=== PATIENT | female | born 1935 | race Caucasian/White ===

== ENCOUNTER 2023-09-03 11:30 | Inpatient (IN) | payer BC, MEDICAID, OTHER ==
[~2023-09-03] VITALS: Ht 149.9 cm; Wt 101.6 kg
[~2023-09-03 11:30] MED LIST: ETOMIDATE 20 MG/10 ML VIAL ONE; PROPOFOL 200 MG/20 ML BOTTLE ONE; SUCCINYLCHOLINE CHLORIDE 200 MG/10 ML VIAL ONE
[2023-09-03] MEDS ORDERED: ONDANSETRON 4 MG/2 ML VIAL ONE (11:37)
[2023-09-03] MEDS ORDERED: ATROPINE SULFATE 1 MG/10 ML DISP.SYRIN ONE ×2 (11:39→11:54)
[2023-09-03] MEDS: ONDANSETRON 4 MG/2 ML VIAL IV PRN ×2 (11:40→17:22)
[2023-09-03 12:00] LABS: BASOPHILS # (AUTO) 0.1 K/UL (0.0-0.2); BASOPHILS % (AUTO) 0.8 % (0.0-2.0); EOSINOPHILS # (AUTO) 0.5 K/uL (0.0-0.7); EOSINOPHILS % (AUTO) 4.9 % (0.0-7.0); HEMATOCRIT 34.3 % (31.2-41.9); HEMOGLOBIN 11.4 g/dL (10.9-14.3); LYMPHOCYTES # (AUTO) 4.1 K/uL (0.8-4.8); LYMPHOCYTES % (AUTO) 40.1 % (20.5-51.5); MEAN CORPUSCULAR HEMOGLOBIN 31.3 uug (24.7-32.8); MEAN CORPUSCULAR HGB CONC 33 g/dL (32.3-35.6); MONOCYTES # (AUTO) 0.7 K/uL (0.1-1.30); MONOCYTES % (AUTO) 6.6 % (0.0-11.0); NEUTROPHILS # (AUTO) 4.9 K/uL (1.8-8.9); NEUTROPHILS % (AUTO) 47.6 % (38.5-71.5); PLATELET COUNT (AUTO) 234 K/uL (179-408); RED BLOOD CELL COUNT(AUTO) 3.65 MIL/uL (3.63-4.92); RED CELL DISTRIBUTION WIDTH 13.5 % (12.3-17.7); WHITE BLOOD COUNT (AUTO) 10.2 K/uL (3.8-11.8)
[2023-09-03] MEDS ORDERED: ATROPINE SULFATE 1 MG/10 ML DISP.SYRIN IV ONE ×2 (12:00→20:00)
[2023-09-03] MEDS ORDERED: APIX2.5T PO (12:04)
[2023-09-03] MEDS ORDERED: DILT-2 PO (12:04)
[2023-09-03] MEDS ORDERED: FLUT12AE20 INH (12:04)
[2023-09-03] MEDS ORDERED: ROSU40TA PO (12:04)
[2023-09-03] MEDS ORDERED: LOSA50TA39 PO (12:04)
[2023-09-03] MEDS ORDERED: ERGO500040 PO (12:04)
[2023-09-03] MEDS ORDERED: SEMA0.25 SQ (12:20)
[2023-09-03] MEDS ORDERED: GLUCAGON,HUMAN RECOMBINANT 1 MG VIAL ONE ×2 (12:21→12:22)
[2023-09-03 12:27] LABS: DIFFERENTIAL COMMENT 1
[2023-09-03] MEDS ORDERED: NOREPINEPHRINE BITARTRATE 4 MG/4 ML VIAL IV ONE (12:49)
[2023-09-03 12:57] LABS: ALANINE AMINOTRANSFERASE 23 U/L (14-59); ALBUMIN 3.4 g/dL (3.4-5.0); ALKALINE PHOSPHATASE 65 U/L (50-136); ASPARTATE AMINOTRANSFERASE 19 U/L (15-37); BILIRUBIN,DIRECT 0.1 mg/dL (0.0-0.2); BILIRUBIN,TOTAL 0.4 mg/dL (0.2-1.0); CARBON DIOXIDE 20 mmol/L (21-32); CHLORIDE 107 mmol/L (98-107); CREATININE 1.8 mg/dL (0.6-1.3); GLUCOSE 164 mg/dL (74-106); POTASSIUM 5.5 mmol/L (3.5-5.1); SODIUM SERUM 139 mmol/L (136-145); TOTAL PROTEIN, SERUM 6.6 g/dL (6.4-8.2); UREA NITROGEN, BLOOD 41 mg/dL (7-18)
[2023-09-03 13:22] LABS: ABG BASE EXCESS -11.3 mmol/L (-2.0-2.0); ABG HCO3 15.5 mmol/L (22.0-26.0); ABG PH 7.229 (7.340-7.440); ABG PO2 71.1 mmHg (75.0-100.0); ABG SITE LEFT RADIAL; ABG TOTAL HEMOGLOBIN 12.7 G/dL (12.0-16.0); AaDO2 91.4 mmHg; COHb 0.1 % (0.0-3.9); MetHb 0.1 % (0.0-1.5); O2Hb 91.5 % (94.0-97.0)
[2023-09-03] MEDS ORDERED: ACETAMINOPHEN 325 MG TABLET PO PRN (14:00)
[2023-09-03] MEDS ORDERED: PROPOFOL 100 ML IV PRN (14:00)
[2023-09-03] MEDS ORDERED: VANCOMYCIN IV 1,000 MG in IV DEXTROSE 5% 250 ML IV ONE (14:15)
[2023-09-03] MEDS ORDERED: CEFEPIME HCL 1 G in IV DEXTROSE 5% 50 ML IV SCH (14:15)
[2023-09-03 14:37] LABS: LIPASE 71 U/L (16-77)
[2023-09-03 14:40] LABS: MAGNESIUM 2.2 mg/dL (1.8-2.4)
[2023-09-03 14:42] LABS: ACETAMINOPHEN < 10.0 ug/mL (10-30)
[2023-09-03] MEDS ORDERED: FENTANYL CITRATE 100 MCG/2 ML AMPUL ONE ×3 (14:43→22:58)
[2023-09-03] MEDS ORDERED: ENAL20TA18 PO (14:45)
[2023-09-03] MEDS ORDERED: FLUT1BLS15 IH (14:45)
[2023-09-03] MEDS ORDERED: DILT60TA3 PO (14:45)
[2023-09-03] MEDS ORDERED: FURO20TA4 PO (14:45)
[2023-09-03 15:14] LABS: LACTIC ACID 2.6 mmol/L (0.4-2.0)
[2023-09-03] MEDS ORDERED: ASPI-495 PO (15:20)
[2023-09-03] MEDS ORDERED: METO25TA6 PO (15:20)
[2023-09-03] MEDS ORDERED: CEFEPIME HCL 1 G VIAL ONE (15:50)
[2023-09-03] MEDS ORDERED: FENTANYL CITRATE 100 MCG/2 ML AMPUL IV ONE ×2 (16:00→20:30)
[2023-09-03 16:21] LABS: ABG BASE EXCESS -6.9 mmol/L (-2.0-2.0); ABG HCO3 18.7 mmol/L (22.0-26.0); ABG PO2 76.4 mmHg (75.0-100.0); ABG SITE LEFT RADIAL; ABG TOTAL HEMOGLOBIN 12.3 G/dL (12.0-16.0); AaDO2 94.2 mmHg; COHb 0.3 % (0.0-3.9); MetHb 0.3 % (0.0-1.5); O2Hb 93.6 % (94.0-97.0)
[2023-09-03] MEDS: FENTANYL CITRATE/PF 1,000 MCG in IV NORMAL SALINE 80 ML IV PRN ×4 (16:30→23:13)
[2023-09-03 16:53] LABS: *BILIRUBIN,URIN NEGATIVE (NEGATIVE); *CLARITY,URINE CLEAR (CLEAR); *COLOR,URINE YELLOW (YELLOW); *KETONES,URINE NEGATIVE (NEGATIVE); *PROTEIN,URINE 2+ (NEGATIVE); *UROBILINOGEN,URINE 0.2 E.U./dl (NORMAL); LEUKOCYTE ESTERASE ,URINE 1+ (NEGATIVE); NITRITE, URINE NEGATIVE (NEGATIVE); PH,URINE 5.5 (5.0-8.0); UGLUCOSE NEGATIVE (NEGATIVE)
[2023-09-03 17:01] LABS: *BLOOD, URINE TRACE (NEGATIVE)
[2023-09-03] MEDS ORDERED: PROPOFOL 100 ML ONE ×2 (17:01→21:09)
[2023-09-03] MEDS ORDERED: VANCOMYCIN IV 200 ML ONE (17:10)
[2023-09-03 17:11] LABS: *AMPHETAMINE, URINE NEGATIVE (NEGATIVE); *BARBITURATE, URINE NEGATIVE (NEGATIVE); *BENZODIAZEPINE, URINE POSITIVE (NEGATIVE); *CANNABINOID, URINE NEGATIVE (NEGATIVE); *COCCAINE, URINE NEGATIVE (NEGATIVE); *OPIATE, URINE NEGATIVE (NEGATIVE); *PHENCYCLIDINE SCREEN,URINE NEGATIVE (NEGATIVE); FENTANYL, URINE POSITIVE (NEGATIVE)
[2023-09-03 17:12] LABS: BACTERIA,URINE FEW /HPF (NONE SEEN); SQUAMOUS EPITHELIAL CELL,UR FEW /HPF (NONE SEEN)
[2023-09-03] MEDS ORDERED: CALCIUM CHLORIDE 1 GM/10 ML DISP.SYRIN IVP ONE (20:00)
[2023-09-03] MEDS ORDERED: MIDAZOLAM HCL 2 MG/2 ML VIAL IV ONE (20:00)
[2023-09-03] MEDS ORDERED: GLUCAGON,HUMAN RECOMBINANT 1 MG VIAL IVP ONE (20:00)
[2023-09-03] MEDS: NOREPINEPHRINE BITARTRATE 8 MG in IV NORMAL SALINE 242 ML IV PRN (20:11)
[2023-09-03] MEDS ORDERED: MIDAZOLAM HCL 5 MG/ML VIAL ONE (20:25)
[2023-09-03] MEDS: PROPOFOL 100 ML IV PRN (22:58)
[2023-09-03 23:00] VITALS: BP 138/70; TEMP 99.9; O2SAT 97
[2023-09-04] VITALS (28 sets, daily range): BP systolic 84–164; BP diastolic 34–92; TEMP 99–100.2; O2SAT 96–99
[2023-09-04] MEDS ORDERED: CALCIUM CHLORIDE 1 GM/10 ML DISP.SYRIN IVP ONE
[2023-09-04] MEDS ORDERED: ATROPINE SULFATE 1 MG/10 ML DISP.SYRIN ONE
[2023-09-04] MEDS ORDERED: EPINEPHRINE 1:10,000 1 MG/10 ML DISP.SYRIN ONE
[2023-09-04] MEDS: IV NS 1000 ML 1,000 ML IV PRN ×2 (00:25→15:25)
[2023-09-04] MEDS ORDERED: CEFEPIME HCL 1 G VIAL ONE (00:51)
[2023-09-04] MEDS: PROPOFOL 100 ML IV PRN ×3 (04:18→20:32)
[2023-09-04 05:03] LABS: BASOPHILS # (AUTO) 0.1 K/UL (0.0-0.2); BASOPHILS % (AUTO) 0.6 % (0.0-2.0); EOSINOPHILS # (AUTO) 0.2 K/uL (0.0-0.7); EOSINOPHILS % (AUTO) 1.6 % (0.0-7.0); HEMATOCRIT 29.3 % (31.2-41.9); HEMOGLOBIN 10.1 g/dL (10.9-14.3); LYMPHOCYTES # (AUTO) 3.2 K/uL (0.8-4.8); LYMPHOCYTES % (AUTO) 30.9 % (20.5-51.5); MEAN CORPUSCULAR HGB CONC 34 g/dL (32.3-35.6); MEAN CORPUSCULAR VOLUME 93.2 fL (75.5-95.3); MONOCYTES # (AUTO) 1.2 K/uL (0.1-1.30); MONOCYTES % (AUTO) 11.3 % (0.0-11.0); NEUTROPHILS # (AUTO) 5.7 K/uL (1.8-8.9); NEUTROPHILS % (AUTO) 55.6 % (38.5-71.5); PLATELET COUNT (AUTO) 163 K/uL (179-408); RED BLOOD CELL COUNT(AUTO) 3.15 MIL/uL (3.63-4.92); WHITE BLOOD COUNT (AUTO) 10.2 K/uL (3.8-11.8)
[2023-09-04 05:05] LABS: DIFFERENTIAL COMMENT 1
[2023-09-04 05:18] LABS: CALCIUM 8.3 mg/dL (8.5-10.1); CARBON DIOXIDE 20 mmol/L (21-32); CHLORIDE 110 mmol/L (98-107); CHOLESTEROL 111 mg/dL (<200); CREATININE 1.6 mg/dL (0.6-1.3); GLUCOSE 87 mg/dL (74-106); HDL CHOLESTEROL 66 mg/dL (40-60); MAGNESIUM 1.7 mg/dL (1.8-2.4); POTASSIUM 3.9 mmol/L (3.5-5.1); SODIUM SERUM 141 mmol/L (136-145); TRIGLYCERIDES 139 MG/DL (30-150); UREA NITROGEN, BLOOD 37 mg/dL (7-18)
[2023-09-04 05:42] LABS: VANCOMYCIN,RANDOM 12.4 ug/mL (20.0-30.0)
[2023-09-04 06:34] LABS: ABG BASE EXCESS -4.4 mmol/L (-2.0-2.0); ABG HCO3 17.3 mmol/L (22.0-26.0); ABG PCO2 22.9 mmHg (35.0-48.0); ABG PH 7.495 (7.340-7.440); ABG PO2 55.7 mmHg (75.0-100.0); ABG SITE RIGHT RADIAL; ABG TOTAL HEMOGLOBIN 11.6 G/dL (12.0-16.0); COHb 0.3 % (0.0-3.9); MetHb 0.3 % (0.0-1.5); O2Hb 89.3 % (94.0-97.0); VT, ABG 600 mL
[2023-09-04] MEDS ORDERED: VANCOMYCIN IV 1,000 MG in IV DEXTROSE 5% 250 ML IV ONE (08:00)
[2023-09-04] MEDS ORDERED: MAGNESIUM SULFATE/D5W 100 ML IV SCH (09:15)
[2023-09-04] MEDS: CEFEPIME HCL 2 G in IV DEXTROSE 5% 100 ML IV SCH ×2 (10:00→10:08)
[2023-09-04] MEDS ORDERED: LIDOCAINE HCL 1% 20 ML VIAL ONE (10:11)
[2023-09-04] MEDS ORDERED: LIDOCAINE 1%-EPI 1:100,000 20 ML VIAL ONE (10:12)
[2023-09-04] MEDS ORDERED: BACITRACIN/POLYMYXIN B OINT 15 GM TUBE ONE (10:14)
[2023-09-04] MEDS ORDERED: PROPOFOL 200 MG/20 ML BOTTLE ONE (10:50)
[2023-09-04] MEDS ORDERED: FENTANYL CITRATE 100 MCG/2 ML AMPUL ONE (12:25)
[2023-09-04] MEDS ORDERED: ACETAMINOPHEN 325 MG SUPP RC PRN (14:15)
[2023-09-04] MEDS: FENTANYL CITRATE/PF 1,000 MCG in IV NORMAL SALINE 80 ML IV PRN (17:34)
[2023-09-04] MEDS: NOREPINEPHRINE BITARTRATE 8 MG in IV NORMAL SALINE 242 ML IV PRN (18:58)
[2023-09-05] VITALS (27 sets, daily range): BP systolic 98–136; BP diastolic 42–121; TEMP 98.9–102.1; O2SAT 91–100
[2023-09-05] MEDS: PROPOFOL 100 ML IV PRN ×5 (00:18→22:29)
[2023-09-05] MEDS: IV NS 1000 ML 1,000 ML IV PRN (04:11)
[2023-09-05] MEDS: FENTANYL CITRATE/PF 1,000 MCG in IV NORMAL SALINE 80 ML IV PRN ×2 (04:12→18:41)
[2023-09-05 05:45] LABS: CALCIUM 8.2 mg/dL (8.5-10.1); CARBON DIOXIDE 14 mmol/L (21-32); CHLORIDE 109 mmol/L (98-107); CREATININE 1.5 mg/dL (0.6-1.3); GLUCOSE 104 mg/dL (74-106); MAGNESIUM 1.8 mg/dL (1.8-2.4); POTASSIUM 3.5 mmol/L (3.5-5.1); SODIUM SERUM 139 mmol/L (136-145); UREA NITROGEN, BLOOD 28 mg/dL (7-18); VANCOMYCIN,RANDOM 14.6 ug/mL (20.0-30.0)
[2023-09-05 05:57] LABS: ABG BASE EXCESS -7.5 mmol/L (-2.0-2.0); ABG HCO3 14.5 mmol/L (22.0-26.0); ABG PCO2 22.8 mmHg (35.0-48.0); ABG PH 7.422 (7.340-7.440); ABG PO2 91.4 mmHg (75.0-100.0); ABG SITE RIGHT RADIAL; ABG TOTAL HEMOGLOBIN 15.5 G/dL (12.0-16.0); AaDO2 97.3 mmHg; COHb 0.3 % (0.0-3.9); MetHb 0.4 % (0.0-1.5); O2Hb 96.4 % (94.0-97.0); VT, ABG 600 mL
[2023-09-05] MEDS ORDERED: VANCOMYCIN IV 1,000 MG in IV DEXTROSE 5% 250 ML IV ONE (08:00)
[2023-09-05] MEDS ORDERED: ENOXAPARIN SODIUM 40 MG/0.4 ML DISP.SYRIN SQ SCH (08:45)
[2023-09-05] MEDS: ENOXAPARIN SODIUM 30 MG/0.3 ML DISP.SYRIN SUBCUT SCH (09:53)
[2023-09-05] MEDS: SODIUM BICARBONATE 8.4% 100 MEQ in IV D5 1/2 NS 1000 ML 1,000 ML IV SCH ×2 (09:55→23:14)
[2023-09-05] MEDS ORDERED: CEFEPIME HCL 2 G in IV DEXTROSE 5% 100 ML IV SCH (13:00)
[2023-09-05] MEDS: ACETAMINOPHEN 650 MG SUPP.RECT RC PRN (13:59)
[2023-09-05 14:02] LABS: ABG BASE EXCESS -8.5 mmol/L (-2.0-2.0); ABG HCO3 17.3 mmol/L (22.0-26.0); ABG PCO2 36.9 mmHg (35.0-48.0); ABG PO2 66.2 mmHg (75.0-100.0); ABG SITE LEFT RADIAL; ABG TOTAL HEMOGLOBIN 11.6 G/dL (12.0-16.0); AaDO2 91.1 mmHg; COHb 0.3 % (0.0-3.9); MetHb 0.3 % (0.0-1.5); O2Hb 89.6 % (94.0-97.0)
[2023-09-06] VITALS (29 sets, daily range): BP systolic 90–134; BP diastolic 43–98; TEMP 98.3–102.1; O2SAT 93–100
[2023-09-06] MEDS: ACETAMINOPHEN 650 MG SUPP.RECT RC PRN ×2 (01:54→15:23)
[2023-09-06] MEDS: PROPOFOL 100 ML IV PRN ×4 (03:37→21:31)
[2023-09-06 05:04] LABS: BASOPHILS % (AUTO) 0.4 % (0.0-2.0); EOSINOPHILS # (AUTO) 0.2 K/uL (0.0-0.7); HEMATOCRIT 28.1 % (31.2-41.9); HEMOGLOBIN 9.2 g/dL (10.9-14.3); LYMPHOCYTES # (AUTO) 2.1 K/uL (0.8-4.8); LYMPHOCYTES % (AUTO) 18.1 % (20.5-51.5); MEAN CORPUSCULAR HEMOGLOBIN 30.5 uug (24.7-32.8); MEAN CORPUSCULAR HGB CONC 33 g/dL (32.3-35.6); MEAN CORPUSCULAR VOLUME 93.6 fL (75.5-95.3); MONOCYTES # (AUTO) 1.1 K/uL (0.1-1.30); MONOCYTES % (AUTO) 9.8 % (0.0-11.0); NEUTROPHILS # (AUTO) 8.1 K/uL (1.8-8.9); NEUTROPHILS % (AUTO) 69.7 % (38.5-71.5); PLATELET COUNT (AUTO) 122 K/uL (179-408); RED CELL DISTRIBUTION WIDTH 13.3 % (12.3-17.7); WHITE BLOOD COUNT (AUTO) 11.6 K/uL (3.8-11.8)
[2023-09-06 05:06] LABS: DIFFERENTIAL COMMENT 1
[2023-09-06 05:29] LABS: ALBUMIN 2.3 g/dL (3.4-5.0); BILIRUBIN,TOTAL 0.6 mg/dL (0.2-1.0); CALCIUM 7.9 mg/dL (8.5-10.1); CREATININE 1.3 mg/dL (0.6-1.3); POTASSIUM 3.5 mmol/L (3.5-5.1); TOTAL PROTEIN, SERUM 5.1 g/dL (6.4-8.2)
[2023-09-06] MEDS ORDERED: VANCOMYCIN IV 1,000 MG in IV DEXTROSE 5% 250 ML IV ONE (08:00)
[2023-09-06] MEDS: CEFEPIME HCL 2 G in IV DEXTROSE 5% 100 ML IV SCH ×2 (08:32→20:21)
[2023-09-06] MEDS: ENOXAPARIN SODIUM 30 MG/0.3 ML DISP.SYRIN SUBCUT SCH (08:34)
[2023-09-06] MEDS: FENTANYL CITRATE/PF 1,000 MCG in IV NORMAL SALINE 80 ML IV PRN (13:46)
[2023-09-06] MEDS: SODIUM BICARBONATE 8.4% 100 MEQ in IV D5 1/2 NS 1000 ML 1,000 ML IV SCH (14:08)
[2023-09-06] MEDS: DILTIAZEM HCL 60 MG TABLET PO SCH (18:43)
[2023-09-06] MEDS: ATORVASTATIN 40 MG TABLET PO SCH (20:19)
[2023-09-06] MEDS: METOPROLOL TARTRATE 25 MG TABLET PO SCH (20:20)
[2023-09-06] MEDS: APIXABAN 2.5 MG TABLET PO SCH (20:21)
[2023-09-07] VITALS (25 sets, daily range): BP systolic 87–116; BP diastolic 39–95; TEMP 98.8–100.8; O2SAT 92–95
[2023-09-07] MEDS: ACETAMINOPHEN 650 MG SUPP.RECT RC PRN (00:22)
[2023-09-07 04:56] LABS: BASOPHILS # (AUTO) 0.1 K/UL (0.0-0.2); EOSINOPHILS # (AUTO) 0.5 K/uL (0.0-0.7); EOSINOPHILS % (AUTO) 4.8 % (0.0-7.0); HEMATOCRIT 27.3 % (31.2-41.9); LYMPHOCYTES # (AUTO) 1.7 K/uL (0.8-4.8); LYMPHOCYTES % (AUTO) 15.5 % (20.5-51.5); MEAN CORPUSCULAR HEMOGLOBIN 30.8 uug (24.7-32.8); MEAN CORPUSCULAR HGB CONC 33 g/dL (32.3-35.6); MEAN CORPUSCULAR VOLUME 93.4 fL (75.5-95.3); MONOCYTES # (AUTO) 0.9 K/uL (0.1-1.30); MONOCYTES % (AUTO) 8.4 % (0.0-11.0); NEUTROPHILS # (AUTO) 7.8 K/uL (1.8-8.9); NEUTROPHILS % (AUTO) 70.3 % (38.5-71.5); PLATELET COUNT (AUTO) 124 K/uL (179-408); RED BLOOD CELL COUNT(AUTO) 2.93 MIL/uL (3.63-4.92); RED CELL DISTRIBUTION WIDTH 13.5 % (12.3-17.7); WHITE BLOOD COUNT (AUTO) 11.1 K/uL (3.8-11.8)
[2023-09-07 04:59] LABS: DIFFERENTIAL COMMENT 1
[2023-09-07] MEDS: PROPOFOL 100 ML IV PRN ×5 (05:01→23:34)
[2023-09-07] MEDS: SODIUM BICARBONATE 8.4% 100 MEQ in IV D5 1/2 NS 1000 ML 1,000 ML IV SCH (05:07)
[2023-09-07 05:11] LABS: CALCIUM 7.8 mg/dL (8.5-10.1); CARBON DIOXIDE 22 mmol/L (21-32); CHLORIDE 106 mmol/L (98-107); CREATININE 1.2 mg/dL (0.6-1.3); GLUCOSE 113 mg/dL (74-106); MAGNESIUM 1.6 mg/dL (1.8-2.4); PHOSPHOROUS 3.7 mg/dL (2.5-4.9); POTASSIUM 3.4 mmol/L (3.5-5.1); SODIUM SERUM 140 mmol/L (136-145); UREA NITROGEN, BLOOD 22 mg/dL (7-18)
[2023-09-07 08:44] LABS: ABG BASE EXCESS -0.9 mmol/L (-2.0-2.0); ABG HCO3 21.4 mmol/L (22.0-26.0); ABG PCO2 28.9 mmHg (35.0-48.0); ABG PH 7.487 (7.340-7.440); ABG PO2 71.6 mmHg (75.0-100.0); ABG TOTAL HEMOGLOBIN 13.3 G/dL (12.0-16.0); AaDO2 95.7 mmHg; MetHb 0.2 % (0.0-1.5); O2Hb 94.5 % (94.0-97.0); VT, ABG 500 mL
[2023-09-07] MEDS: ASPIRIN 81 MG TAB.CHEW PO SCH (08:53)
[2023-09-07] MEDS: METOPROLOL TARTRATE 25 MG TABLET PO SCH (08:53)
[2023-09-07] MEDS: APIXABAN 2.5 MG TABLET PO SCH ×2 (08:56→20:43)
[2023-09-07] MEDS: DILTIAZEM HCL 60 MG TABLET PO SCH ×3 (08:57→17:00)
[2023-09-07] MEDS: CEFEPIME HCL 2 G in IV DEXTROSE 5% 100 ML IV SCH ×2 (08:58→20:42)
[2023-09-07] MEDS ORDERED: Rosuvastatin Calcium (Crestor) 1 TAB) PO SCH (09:00)
[2023-09-07] MEDS ORDERED: ASPIRIN EC 81 MG TABLET.DR PO SCH (09:00)
[2023-09-07] MEDS ORDERED: LOSARTAN POTASSIUM 50 MG TABLET PO SCH (09:00)
[2023-09-07] MEDS ORDERED: VANCOMYCIN IV 1,000 MG in IV DEXTROSE 5% 250 ML IV ONE (10:00)
[2023-09-07] MEDS: FENTANYL CITRATE/PF 1,000 MCG in IV NORMAL SALINE 80 ML IV PRN ×2 (10:43→18:40)
[2023-09-07] MEDS: MAGNESIUM SULFATE/D5W 100 ML IV SCH ×2 (10:58→12:00)
[2023-09-07] MEDS: POTASSIUM CHLORIDE 50 ML IV SCH ×2 (10:59→12:01)
[2023-09-07] MEDS ORDERED: NOREPINEPHRINE BITARTRATE 32 MG in IV NORMAL SALINE 218 ML IV PRN (12:45)
[2023-09-07] MEDS: ATORVASTATIN 40 MG TABLET PO SCH (20:42)
[2023-09-08] VITALS (24 sets, daily range): BP systolic 86–112; BP diastolic 39–68; TEMP 99–100.2; O2SAT 90–96
[2023-09-08 05:06] LABS: BASOPHILS % (AUTO) 0.2 % (0.0-2.0); EOSINOPHILS # (AUTO) 0.6 K/uL (0.0-0.7); EOSINOPHILS % (AUTO) 5.9 % (0.0-7.0); HEMATOCRIT 26.8 % (31.2-41.9); LYMPHOCYTES % (AUTO) 10.1 % (20.5-51.5); MEAN CORPUSCULAR HGB CONC 33 g/dL (32.3-35.6); MEAN CORPUSCULAR VOLUME 92.6 fL (75.5-95.3); MONOCYTES # (AUTO) 0.9 K/uL (0.1-1.30); MONOCYTES % (AUTO) 9.2 % (0.0-11.0); NEUTROPHILS # (AUTO) 7.7 K/uL (1.8-8.9); NEUTROPHILS % (AUTO) 74.6 % (38.5-71.5); PLATELET COUNT (AUTO) 136 K/uL (179-408); RED CELL DISTRIBUTION WIDTH 13.1 % (12.3-17.7); WHITE BLOOD COUNT (AUTO) 10.3 K/uL (3.8-11.8)
[2023-09-08 05:33] LABS: CALCIUM 7.7 mg/dL (8.5-10.1); CARBON DIOXIDE 21 mmol/L (21-32); CHLORIDE 105 mmol/L (98-107); CREATININE 1.3 mg/dL (0.6-1.3); GLUCOSE 98 mg/dL (74-106); POTASSIUM 3.2 mmol/L (3.5-5.1); SODIUM SERUM 137 mmol/L (136-145); UREA NITROGEN, BLOOD 24 mg/dL (7-18); VANCOMYCIN,RANDOM 22.9 ug/mL (20.0-30.0)
[2023-09-08 05:34] LABS: DIFFERENTIAL COMMENT 1
[2023-09-08] MEDS: PROPOFOL 100 ML IV PRN ×4 (05:34→18:44)
[2023-09-08 07:36] LABS: ABG BASE EXCESS -1.5 mmol/L (-2.0-2.0); ABG HCO3 21.1 mmol/L (22.0-26.0); ABG PCO2 31.2 mmHg (35.0-48.0); ABG PH 7.448 (7.340-7.440); ABG TOTAL HEMOGLOBIN 18.7 G/dL (12.0-16.0); AaDO2 94.9 mmHg; COHb 0.3 % (0.0-3.9); MetHb 0.5 % (0.0-1.5); O2Hb 93.2 % (94.0-97.0); VT, ABG 500 mL
[2023-09-08] MEDS ORDERED: POTASSIUM CHLORIDE 20 MEQ POWDER PACKET GT ONE (08:15)
[2023-09-08] MEDS: POTASSIUM CHLORIDE 50 ML IV SCH ×2 (08:45→10:49)
[2023-09-08] MEDS: ASPIRIN 81 MG TAB.CHEW PO SCH (09:00)
[2023-09-08] MEDS: CEFEPIME HCL 2 G in IV DEXTROSE 5% 100 ML IV SCH ×2 (09:23→21:16)
[2023-09-08] MEDS: ACETAMINOPHEN 650 MG SUPP.RECT RC PRN ×2 (09:26→17:14)
[2023-09-08] MEDS: APIXABAN 2.5 MG TABLET PO SCH ×2 (10:10→21:00)
[2023-09-08] MEDS: FENTANYL CITRATE/PF 1,000 MCG in IV NORMAL SALINE 80 ML IV PRN (18:13)
[2023-09-08] MEDS: ATORVASTATIN 40 MG TABLET PO SCH (21:16)
[2023-09-09] VITALS (69 sets, daily range): BP systolic 67–141; BP diastolic 18–93; TEMP 99.2–100.2; O2SAT 94–98
[2023-09-09] MEDS: PROPOFOL 100 ML IV PRN ×4 (01:46→19:25)
[2023-09-09 05:58] LABS: VANCOMYCIN,RANDOM 17.3 ug/mL (20.0-30.0)
[2023-09-09 06:11] LABS: ABG BASE EXCESS -7.2 mmol/L (-2.0-2.0); ABG PH 7.329 (7.340-7.440); ABG PO2 77.7 mmHg (75.0-100.0); ABG SITE RIGHT RADIAL; ABG TOTAL HEMOGLOBIN 10.4 G/dL (12.0-16.0); AaDO2 94.8 mmHg; COHb 0.2 % (0.0-3.9); MetHb 0.3 % (0.0-1.5); O2Hb 93.6 % (94.0-97.0); VT, ABG 500 mL
[2023-09-09] MEDS ORDERED: VANCOMYCIN IV 750 MG in IV DEXTROSE 5% 250 ML IV ONE (08:00)
[2023-09-09] MEDS: FUROSEMIDE 20 MG/2 ML VIAL IV SCH ×2 (08:28→22:27)
[2023-09-09 08:37] LABS: BASOPHILS % (AUTO) 0.2 % (0.0-2.0); EOSINOPHILS # (AUTO) 0.8 K/uL (0.0-0.7); EOSINOPHILS % (AUTO) 5.7 % (0.0-7.0); HEMATOCRIT 29.8 % (31.2-41.9); HEMOGLOBIN 9.8 g/dL (10.9-14.3); LYMPHOCYTES # (AUTO) 2.5 K/uL (0.8-4.8); MEAN CORPUSCULAR HEMOGLOBIN 30.7 uug (24.7-32.8); MEAN CORPUSCULAR HGB CONC 33 g/dL (32.3-35.6); MEAN CORPUSCULAR VOLUME 93.7 fL (75.5-95.3); MONOCYTES # (AUTO) 1.7 K/uL (0.1-1.30); MONOCYTES % (AUTO) 11.7 % (0.0-11.0); NEUTROPHILS # (AUTO) 9.7 K/uL (1.8-8.9); NEUTROPHILS % (AUTO) 65.4 % (38.5-71.5); PLATELET COUNT (AUTO) 219 K/uL (179-408); RED BLOOD CELL COUNT(AUTO) 3.18 MIL/uL (3.63-4.92); RED CELL DISTRIBUTION WIDTH 13.6 % (12.3-17.7); WHITE BLOOD COUNT (AUTO) 14.8 K/uL (3.8-11.8)
[2023-09-09 08:41] LABS: DIFFERENTIAL COMMENT 1
[2023-09-09 09:21] LABS: ALANINE AMINOTRANSFERASE 62 U/L (14-59); ALBUMIN 1.8 g/dL (3.4-5.0); ALKALINE PHOSPHATASE 147 U/L (50-136); ASPARTATE AMINOTRANSFERASE 98 U/L (15-37); BILIRUBIN,TOTAL 0.7 mg/dL (0.2-1.0); CARBON DIOXIDE 20 mmol/L (21-32); CHLORIDE 105 mmol/L (98-107); CREATININE 1.6 mg/dL (0.6-1.3); GLUCOSE 101 mg/dL (74-106); MAGNESIUM 2.4 mg/dL (1.8-2.4); POTASSIUM 4.3 mmol/L (3.5-5.1); SODIUM SERUM 135 mmol/L (136-145); TOTAL PROTEIN, SERUM 5.7 g/dL (6.4-8.2); UREA NITROGEN, BLOOD 31 mg/dL (7-18)
[2023-09-09] MEDS: CEFEPIME HCL 2 G in IV DEXTROSE 5% 100 ML IV SCH ×2 (11:04→22:26)
[2023-09-09] MEDS: FENTANYL CITRATE/PF 1,000 MCG in IV NORMAL SALINE 80 ML IV PRN (17:13)
[2023-09-09] MEDS: ACETAMINOPHEN 650 MG/20.3 ML LIQUID UDC NG PRN ×2 (18:11→22:31)
[2023-09-09] MEDS: ATORVASTATIN 40 MG TABLET PO SCH (22:28)
[2023-09-10] VITALS (69 sets, daily range): BP systolic 84–156; BP diastolic 19–76; TEMP 98–99.5; O2SAT 36–100
[2023-09-10] MEDS: NOREPINEPHRINE BITARTRATE 8 MG in IV NORMAL SALINE 242 ML IV PRN ×2 (01:20→12:00)
[2023-09-10] MEDS: PROPOFOL 100 ML IV PRN ×2 (01:26→08:09)
[2023-09-10 05:30] LABS: BASOPHILS % (AUTO) 0.2 % (0.0-2.0); EOSINOPHILS # (AUTO) 1.1 K/uL (0.0-0.7); HEMATOCRIT 30.1 % (31.2-41.9); HEMOGLOBIN 9.8 g/dL (10.9-14.3); LYMPHOCYTES % (AUTO) 10.8 % (20.5-51.5); MEAN CORPUSCULAR HEMOGLOBIN 30.4 uug (24.7-32.8); MEAN CORPUSCULAR HGB CONC 33 g/dL (32.3-35.6); MEAN CORPUSCULAR VOLUME 93.2 fL (75.5-95.3); MONOCYTES # (AUTO) 2.4 K/uL (0.1-1.30); MONOCYTES % (AUTO) 12.9 % (0.0-11.0); NEUTROPHILS # (AUTO) 12.8 K/uL (1.8-8.9); NEUTROPHILS % (AUTO) 70.1 % (38.5-71.5); PLATELET COUNT (AUTO) 243 K/uL (179-408); RED BLOOD CELL COUNT(AUTO) 3.23 MIL/uL (3.63-4.92); RED CELL DISTRIBUTION WIDTH 13.7 % (12.3-17.7); WHITE BLOOD COUNT (AUTO) 18.3 K/uL (3.8-11.8)
[2023-09-10 05:46] LABS: DIFFERENTIAL COMMENT 1
[2023-09-10 05:48] LABS: CALCIUM 8.1 mg/dL (8.5-10.1); CARBON DIOXIDE 16 mmol/L (21-32); CHLORIDE 103 mmol/L (98-107); CREATININE 2.1 mg/dL (0.6-1.3); GLUCOSE 111 mg/dL (74-106); POTASSIUM 3.6 mmol/L (3.5-5.1); SODIUM SERUM 132 mmol/L (136-145); UREA NITROGEN, BLOOD 38 mg/dL (7-18); VANCOMYCIN,RANDOM 24.6 ug/mL (20.0-30.0)
[2023-09-10 06:01] LABS: ABG BASE EXCESS -9.2 mmol/L (-2.0-2.0); ABG HCO3 16.4 mmol/L (22.0-26.0); ABG PCO2 34.7 mmHg (35.0-48.0); ABG PH 7.293 (7.340-7.440); ABG PO2 109.9 mmHg (75.0-100.0); ABG TOTAL HEMOGLOBIN 10.7 G/dL (12.0-16.0); AaDO2 97.6 mmHg; COHb 0.2 % (0.0-3.9); MetHb 0.5 % (0.0-1.5); O2Hb 97.1 % (94.0-97.0); VT, ABG 500 mL
[2023-09-10] MEDS: ALBUMIN HUMAN 25% 100 ML IV SCH ×3 (09:50→22:29)
[2023-09-10] MEDS: ERGOCALCIFEROL 50,000 UNIT CAPSULE PO SCH (09:58)
[2023-09-10] MEDS: CEFEPIME HCL 1 G in IV DEXTROSE 5% 50 ML IV SCH (10:33)
[2023-09-10] MEDS: FENTANYL CITRATE/PF 1,000 MCG in IV NORMAL SALINE 80 ML IV PRN (12:29)
[2023-09-10] MEDS: MIDAZOLAM HCL 50 MG in IV NORMAL SALINE 40 ML IV PRN (13:27)
[2023-09-10] MEDS: ATORVASTATIN 40 MG TABLET PO SCH (22:28)
[2023-09-10] MEDS: METRONIDAZOLE 500 MG TABLET PO SCH (22:28)
[2023-09-11] VITALS (48 sets, daily range): BP systolic 103–132; BP diastolic 40–64; TEMP 97.7–99.5; O2SAT 96–99
[2023-09-11] MEDS: ALBUMIN HUMAN 25% 100 ML IV SCH (05:01)
[2023-09-11 05:24] LABS: BASOPHILS % (AUTO) 0.2 % (0.0-2.0); EOSINOPHILS # (AUTO) 1.1 K/uL (0.0-0.7); EOSINOPHILS % (AUTO) 6.8 % (0.0-7.0); HEMOGLOBIN 8.4 g/dL (10.9-14.3); LYMPHOCYTES % (AUTO) 11.9 % (20.5-51.5); MEAN CORPUSCULAR HEMOGLOBIN 30.3 uug (24.7-32.8); MEAN CORPUSCULAR HGB CONC 32 g/dL (32.3-35.6); MEAN CORPUSCULAR VOLUME 93.7 fL (75.5-95.3); MONOCYTES # (AUTO) 2.2 K/uL (0.1-1.30); MONOCYTES % (AUTO) 13.2 % (0.0-11.0); NEUTROPHILS # (AUTO) 11.3 K/uL (1.8-8.9); NEUTROPHILS % (AUTO) 67.9 % (38.5-71.5); PLATELET COUNT (AUTO) 224 K/uL (179-408); RED BLOOD CELL COUNT(AUTO) 2.77 MIL/uL (3.63-4.92); RED CELL DISTRIBUTION WIDTH 14.2 % (12.3-17.7); WHITE BLOOD COUNT (AUTO) 16.7 K/uL (3.8-11.8)
[2023-09-11 05:33] LABS: DIFFERENTIAL COMMENT 1
[2023-09-11 05:43] LABS: CALCIUM 8.7 mg/dL (8.5-10.1); CARBON DIOXIDE 16 mmol/L (21-32); CHLORIDE 104 mmol/L (98-107); CREATININE 2.4 mg/dL (0.6-1.3); GLUCOSE 91 mg/dL (74-106); POTASSIUM 3.5 mmol/L (3.5-5.1); SODIUM SERUM 138 mmol/L (136-145); UREA NITROGEN, BLOOD 42 mg/dL (7-18); VANCOMYCIN,RANDOM 20.1 ug/mL (20.0-30.0)
[2023-09-11] MEDS: METRONIDAZOLE 500 MG TABLET PO SCH ×2 (05:45→14:00)
[2023-09-11 06:20] LABS: ABG BASE EXCESS -12.3 mmol/L (-2.0-2.0); ABG HCO3 13.3 mmol/L (22.0-26.0); ABG PCO2 29.6 mmHg (35.0-48.0); ABG PO2 92.9 mmHg (75.0-100.0); AaDO2 96.3 mmHg; COHb 0.3 % (0.0-3.9); MetHb 0.3 % (0.0-1.5); O2Hb 96.1 % (94.0-97.0); VT, ABG 500 mL
[2023-09-11] MEDS ORDERED: FUROSEMIDE 40 MG/4 ML VIAL IV ONE (07:30)
[2023-09-11] MEDS: MIDAZOLAM HCL 50 MG in IV NORMAL SALINE 40 ML IV PRN ×2 (09:08→09:41)
[2023-09-11] MEDS: FENTANYL CITRATE/PF 1,000 MCG in IV NORMAL SALINE 80 ML IV PRN (09:40)
[2023-09-11] MEDS: CEFEPIME HCL 1 G in IV DEXTROSE 5% 50 ML IV SCH (10:00)
[2023-09-11] MEDS: ATORVASTATIN 40 MG TABLET PO SCH (21:11)
[2023-09-11] MEDS ORDERED: MEROPENEM 500 MG in IV NORMAL SALINE 50 ML IV ONE (21:15)
[2023-09-11] MEDS ORDERED: MEROPENEM 500 MG VIAL IV ONE (21:27)
[2023-09-11] MEDS ORDERED: VANCOMYCIN 1000 MG VIAL ONE (21:27)
[2023-09-11] MEDS ORDERED: PHENYLEPHRINE 10 MG/1 ML VIAL ONE (21:28)
[2023-09-12] VITALS (51 sets, daily range): BP systolic 107–141; BP diastolic 41–72; TEMP 98.5–98.9; O2SAT 95–100
[2023-09-12 04:55] LABS: BASOPHILS % (AUTO) 0.2 % (0.0-2.0); EOSINOPHILS # (AUTO) 0.9 K/uL (0.0-0.7); EOSINOPHILS % (AUTO) 5.3 % (0.0-7.0); HEMATOCRIT 28.2 % (31.2-41.9); HEMOGLOBIN 9.2 g/dL (10.9-14.3); LYMPHOCYTES # (AUTO) 1.4 K/uL (0.8-4.8); LYMPHOCYTES % (AUTO) 8.1 % (20.5-51.5); MEAN CORPUSCULAR HEMOGLOBIN 30.2 uug (24.7-32.8); MEAN CORPUSCULAR HGB CONC 33 g/dL (32.3-35.6); MEAN CORPUSCULAR VOLUME 92.7 fL (75.5-95.3); MONOCYTES % (AUTO) 11.4 % (0.0-11.0); NEUTROPHILS # (AUTO) 13.2 K/uL (1.8-8.9); PLATELET COUNT (AUTO) 257 K/uL (179-408); RED BLOOD CELL COUNT(AUTO) 3.05 MIL/uL (3.63-4.92); RED CELL DISTRIBUTION WIDTH 14.1 % (12.3-17.7); WHITE BLOOD COUNT (AUTO) 17.6 K/uL (3.8-11.8)
[2023-09-12 04:59] LABS: DIFFERENTIAL COMMENT 1
[2023-09-12 05:05] LABS: CALCIUM 8.5 mg/dL (8.5-10.1); CARBON DIOXIDE 17 mmol/L (21-32); CHLORIDE 106 mmol/L (98-107); CREATININE 3.2 mg/dL (0.6-1.3); GLUCOSE 131 mg/dL (74-106); POTASSIUM 3.3 mmol/L (3.5-5.1); SODIUM SERUM 138 mmol/L (136-145); UREA NITROGEN, BLOOD 50 mg/dL (7-18)
[2023-09-12 05:11] LABS: ALBUMIN 2.2 g/dL (3.4-5.0); BILIRUBIN,DIRECT 0.2 mg/dL (0.0-0.2); BILIRUBIN,TOTAL 0.5 mg/dL (0.2-1.0); MAGNESIUM 2.4 mg/dL (1.8-2.4); PHOSPHOROUS 5.1 mg/dL (2.5-4.9); TOTAL PROTEIN, SERUM 5.7 g/dL (6.4-8.2)
[2023-09-12 07:33] LABS: ABG BASE EXCESS -10.4 mmol/L (-2.0-2.0); ABG PCO2 31.7 mmHg (35.0-48.0); ABG PH 7.294 (7.340-7.440); ABG PO2 102.3 mmHg (75.0-100.0); ABG SITE RIGHT RADIAL; ABG TOTAL HEMOGLOBIN 10.4 G/dL (12.0-16.0); AaDO2 97.2 mmHg; COHb 0.3 % (0.0-3.9); MetHb 0.1 % (0.0-1.5); VT, ABG 500 mL
[2023-09-12] MEDS: MEROPENEM 500 MG in IV NORMAL SALINE 50 ML IV SCH ×2 (09:00→20:51)
[2023-09-12] MEDS ORDERED: POTASSIUM CHLORIDE 50 ML IV SCH (10:00)
[2023-09-12] MEDS: NOREPINEPHRINE BITARTRATE 8 MG in IV NORMAL SALINE 242 ML IV PRN (14:02)
[2023-09-12] MEDS: FENTANYL CITRATE/PF 1,000 MCG in IV NORMAL SALINE 80 ML IV PRN (18:39)
[2023-09-12] MEDS: ATORVASTATIN 40 MG TABLET PO SCH (21:00)
[2023-09-13] VITALS (33 sets, daily range): BP systolic 94–156; BP diastolic 48–87; TEMP 97.9–99.3; O2SAT 96–97
[2023-09-13 05:22] LABS: BASOPHILS # (AUTO) 0.1 K/UL (0.0-0.2); BASOPHILS % (AUTO) 0.3 % (0.0-2.0); EOSINOPHILS # (AUTO) 0.7 K/uL (0.0-0.7); EOSINOPHILS % (AUTO) 3.1 % (0.0-7.0); HEMATOCRIT 29.9 % (31.2-41.9); HEMOGLOBIN 9.8 g/dL (10.9-14.3); LYMPHOCYTES # (AUTO) 1.3 K/uL (0.8-4.8); MEAN CORPUSCULAR HEMOGLOBIN 30.1 uug (24.7-32.8); MEAN CORPUSCULAR HGB CONC 33 g/dL (32.3-35.6); MONOCYTES # (AUTO) 1.8 K/uL (0.1-1.30); MONOCYTES % (AUTO) 8.4 % (0.0-11.0); NEUTROPHILS # (AUTO) 17.6 K/uL (1.8-8.9); NEUTROPHILS % (AUTO) 82.2 % (38.5-71.5); PLATELET COUNT (AUTO) 286 K/uL (179-408); RED BLOOD CELL COUNT(AUTO) 3.24 MIL/uL (3.63-4.92); RED CELL DISTRIBUTION WIDTH 14.1 % (12.3-17.7); WHITE BLOOD COUNT (AUTO) 21.5 K/uL (3.8-11.8)
[2023-09-13 05:24] LABS: CALCIUM 8.6 mg/dL (8.5-10.1); CARBON DIOXIDE 17 mmol/L (21-32); CHLORIDE 107 mmol/L (98-107); CREATININE 3.6 mg/dL (0.6-1.3); GLUCOSE 159 mg/dL (74-106); POTASSIUM 3.2 mmol/L (3.5-5.1); SODIUM SERUM 140 mmol/L (136-145); UREA NITROGEN, BLOOD 64 mg/dL (7-18)
[2023-09-13 05:29] LABS: MAGNESIUM 2.2 mg/dL (1.8-2.4); PHOSPHOROUS 4.9 mg/dL (2.5-4.9)
[2023-09-13 05:30] LABS: DIFFERENTIAL COMMENT 1
[2023-09-13 06:12] LABS: ABG BASE EXCESS -9.1 mmol/L (-2.0-2.0); ABG HCO3 15.5 mmol/L (22.0-26.0); ABG PCO2 29.4 mmHg (35.0-48.0); ABG PO2 76.8 mmHg (75.0-100.0); ABG SITE RIGHT RADIAL; AaDO2 94.9 mmHg; COHb 0.3 % (0.0-3.9); MetHb 0.4 % (0.0-1.5); O2Hb 94.8 % (94.0-97.0); VT, ABG 500 mL
[2023-09-13] MEDS: MEROPENEM 500 MG in IV NORMAL SALINE 50 ML IV SCH ×2 (08:19→20:27)
[2023-09-13] MEDS ORDERED: POTASSIUM CHLORIDE 50 ML IV SCH (09:15)
[2023-09-13] MEDS ORDERED: IV D5/ 0.9% NACL 1,000 ML IV SCH (15:30)
[2023-09-13] MEDS: FENTANYL CITRATE/PF 1,000 MCG in IV NORMAL SALINE 80 ML IV PRN (18:12)
[2023-09-13] MEDS: NOREPINEPHRINE BITARTRATE 8 MG in IV NORMAL SALINE 242 ML IV PRN (19:07)
[2023-09-13] MEDS: ACETAMINOPHEN 650 MG/20.3 ML LIQUID UDC NG PRN (20:27)
[2023-09-13] MEDS: ATORVASTATIN 40 MG TABLET PO SCH (20:28)
[2023-09-13] MEDS: FLUCONAZOLE 200 MG TABLET PO SCH (21:00)
[2023-09-13] MEDS: LINEZOLID 600 MG TABLET PO SCH (21:00)
[2023-09-13] MEDS ORDERED: TEMAZEPAM 7.5 MG CAPSULE PO PRN (22:30)
[2023-09-14] VITALS (26 sets, daily range): BP systolic 102–134; BP diastolic 41–61; TEMP 97.9–98.9; O2SAT 96–99
[2023-09-14 05:13] LABS: BASOPHILS # (AUTO) 0.1 K/UL (0.0-0.2); BASOPHILS % (AUTO) 0.3 % (0.0-2.0); EOSINOPHILS # (AUTO) 0.3 K/uL (0.0-0.7); EOSINOPHILS % (AUTO) 1.3 % (0.0-7.0); HEMATOCRIT 26.8 % (31.2-41.9); HEMOGLOBIN 8.9 g/dL (10.9-14.3); LYMPHOCYTES # (AUTO) 1.8 K/uL (0.8-4.8); LYMPHOCYTES % (AUTO) 7.3 % (20.5-51.5); MEAN CORPUSCULAR HEMOGLOBIN 30.3 uug (24.7-32.8); MEAN CORPUSCULAR HGB CONC 33 g/dL (32.3-35.6); MEAN CORPUSCULAR VOLUME 91.7 fL (75.5-95.3); MONOCYTES # (AUTO) 1.6 K/uL (0.1-1.30); MONOCYTES % (AUTO) 6.6 % (0.0-11.0); NEUTROPHILS # (AUTO) 20.5 K/uL (1.8-8.9); NEUTROPHILS % (AUTO) 84.5 % (38.5-71.5); PLATELET COUNT (AUTO) 263 K/uL (179-408); RED BLOOD CELL COUNT(AUTO) 2.93 MIL/uL (3.63-4.92); RED CELL DISTRIBUTION WIDTH 14.1 % (12.3-17.7); WHITE BLOOD COUNT (AUTO) 24.2 K/uL (3.8-11.8)
[2023-09-14 05:22] LABS: CALCIUM 8.4 mg/dL (8.5-10.1); CARBON DIOXIDE 18 mmol/L (21-32); CHLORIDE 110 mmol/L (98-107); CREATININE 3.9 mg/dL (0.6-1.3); GLUCOSE 127 mg/dL (74-106); POTASSIUM 3.3 mmol/L (3.5-5.1); SODIUM SERUM 143 mmol/L (136-145); UREA NITROGEN, BLOOD 76 mg/dL (7-18)
[2023-09-14 05:27] LABS: MAGNESIUM 2.2 mg/dL (1.8-2.4); PHOSPHOROUS 4.6 mg/dL (2.5-4.9)
[2023-09-14 05:52] LABS: DIFFERENTIAL COMMENT 1
[2023-09-14 06:42] LABS: ABG BASE EXCESS -9.2 mmol/L (-2.0-2.0); ABG HCO3 15.1 mmol/L (22.0-26.0); ABG PCO2 27.7 mmHg (35.0-48.0); ABG PH 7.355 (7.340-7.440); ABG PO2 84.8 mmHg (75.0-100.0); AaDO2 96.2 mmHg; COHb 0.2 % (0.0-3.9); MetHb 0.2 % (0.0-1.5); O2Hb 95.4 % (94.0-97.0); VT, ABG 500 mL
[2023-09-14] MEDS: LINEZOLID 600 MG TABLET PO SCH ×3 (09:00→21:53)
[2023-09-14] MEDS: MEROPENEM 500 MG in IV NORMAL SALINE 50 ML IV SCH ×2 (09:36→20:58)
[2023-09-14] MEDS ORDERED: VITAL AF 1.2 1,000 ML LIQUID GT PRN (16:00)
[2023-09-14] MEDS: FENTANYL CITRATE/PF 1,000 MCG in IV NORMAL SALINE 80 ML IV PRN (18:05)
[2023-09-14] MEDS: ATORVASTATIN 40 MG TABLET PO SCH (20:58)
[2023-09-14] MEDS: FLUCONAZOLE 200 MG TABLET PO SCH (20:58)
[2023-09-15] VITALS (24 sets, daily range): BP systolic 111–162; BP diastolic 48–81; TEMP 97–99.3; O2SAT 96–99
[2023-09-15 04:56] LABS: BASOPHILS # (AUTO) 0.1 K/UL (0.0-0.2); BASOPHILS % (AUTO) 0.3 % (0.0-2.0); EOSINOPHILS # (AUTO) 0.5 K/uL (0.0-0.7); HEMATOCRIT 27.3 % (31.2-41.9); HEMOGLOBIN 8.9 g/dL (10.9-14.3); LYMPHOCYTES % (AUTO) 12.1 % (20.5-51.5); MEAN CORPUSCULAR HGB CONC 33 g/dL (32.3-35.6); MEAN CORPUSCULAR VOLUME 91.9 fL (75.5-95.3); MONOCYTES # (AUTO) 2.2 K/uL (0.1-1.30); MONOCYTES % (AUTO) 8.8 % (0.0-11.0); NEUTROPHILS % (AUTO) 76.8 % (38.5-71.5); PLATELET COUNT (AUTO) 272 K/uL (179-408); RED BLOOD CELL COUNT(AUTO) 2.97 MIL/uL (3.63-4.92); RED CELL DISTRIBUTION WIDTH 14.3 % (12.3-17.7); WHITE BLOOD COUNT (AUTO) 24.7 K/uL (3.8-11.8)
[2023-09-15] MEDS: VITAL AF 1.2 1,000 ML LIQUID GT PRN ×2 (05:07→09:35)
[2023-09-15 05:10] LABS: CALCIUM 8.2 mg/dL (8.5-10.1); CARBON DIOXIDE 17 mmol/L (21-32); CHLORIDE 110 mmol/L (98-107); GLUCOSE 113 mg/dL (74-106); POTASSIUM 3.1 mmol/L (3.5-5.1); SODIUM SERUM 144 mmol/L (136-145)
[2023-09-15 05:11] LABS: MAGNESIUM 2.2 mg/dL (1.8-2.4); PHOSPHOROUS 4.7 mg/dL (2.5-4.9)
[2023-09-15 05:14] LABS: UREA NITROGEN, BLOOD 82 mg/dL (7-18)
[2023-09-15 05:15] LABS: DIFFERENTIAL COMMENT 1
[2023-09-15 05:36] LABS: ABG BASE EXCESS -12.4 mmol/L (-2.0-2.0); ABG HCO3 12.3 mmol/L (22.0-26.0); ABG PCO2 25.1 mmHg (35.0-48.0); ABG PH 7.308 (7.340-7.440); ABG PO2 82.8 mmHg (75.0-100.0); ABG SITE RIGHT RADIAL; ABG TOTAL HEMOGLOBIN 11.2 G/dL (12.0-16.0); AaDO2 95.5 mmHg; COHb 0.3 % (0.0-3.9); MetHb 0.3 % (0.0-1.5); O2Hb 95.1 % (94.0-97.0); VT, ABG 500 mL
[2023-09-15] MEDS: MEROPENEM 500 MG in IV NORMAL SALINE 50 ML IV SCH ×2 (09:29→20:31)
[2023-09-15] MEDS: LINEZOLID 600 MG TABLET PO SCH ×2 (09:34→20:33)
[2023-09-15 09:49] LABS: ABG BASE EXCESS -9.2 mmol/L (-2.0-2.0); ABG HCO3 15.3 mmol/L (22.0-26.0); ABG PCO2 28.4 mmHg (35.0-48.0); ABG PH 7.349 (7.340-7.440); ABG PO2 113.3 mmHg (75.0-100.0); ABG SITE LEFT RADIAL; ABG TOTAL HEMOGLOBIN 9.7 G/dL (12.0-16.0); COHb 0.3 % (0.0-3.9); MetHb 0.2 % (0.0-1.5); O2Hb 97.4 % (94.0-97.0)
[2023-09-15] MEDS ORDERED: LORAZEPAM 2 MG/1 ML VIAL IV PRN (11:45)
[2023-09-15] MEDS: ATORVASTATIN 40 MG TABLET PO SCH (20:31)
[2023-09-15] MEDS: FLUCONAZOLE 200 MG TABLET PO SCH (20:31)
[2023-09-15] MEDS: FENTANYL CITRATE/PF 1,000 MCG in IV NORMAL SALINE 80 ML IV PRN (20:42)
[2023-09-16] VITALS (49 sets, daily range): BP systolic 101–167; BP diastolic 42–82; TEMP 97.3–99.2; O2SAT 94–98
[2023-09-16] MEDS: NOREPINEPHRINE BITARTRATE 8 MG in IV NORMAL SALINE 242 ML IV PRN (04:51)
[2023-09-16 05:15] LABS: BASOPHILS % (AUTO) 0.1 % (0.0-2.0); EOSINOPHILS # (AUTO) 0.1 K/uL (0.0-0.7); MEAN CORPUSCULAR VOLUME 92.2 fL (75.5-95.3); NEUTROPHILS # (AUTO) 35.5 K/uL (1.8-8.9)
[2023-09-16 05:18] LABS: EOSINOPHILS % (AUTO) 0.3 % (0.0-7.0); HEMATOCRIT 30.2 % (31.2-41.9); HEMOGLOBIN 9.9 g/dL (10.9-14.3); LYMPHOCYTES # (AUTO) 1.3 K/uL (0.8-4.8); LYMPHOCYTES % (AUTO) 3.4 % (20.5-51.5); MEAN CORPUSCULAR HEMOGLOBIN 30.1 uug (24.7-32.8); MEAN CORPUSCULAR HGB CONC 33 g/dL (32.3-35.6); MONOCYTES # (AUTO) 2.1 K/uL (0.1-1.30); MONOCYTES % (AUTO) 5.5 % (0.0-11.0); NEUTROPHILS % (AUTO) 90.7 % (38.5-71.5); PLATELET COUNT (AUTO) 328 K/uL (179-408); RED BLOOD CELL COUNT(AUTO) 3.28 MIL/uL (3.63-4.92); RED CELL DISTRIBUTION WIDTH 14.4 % (12.3-17.7)
[2023-09-16 05:35] LABS: MAGNESIUM 1.9 mg/dL (1.8-2.4)
[2023-09-16 05:38] LABS: CARBON DIOXIDE 16 mmol/L (21-32); CHLORIDE 104 mmol/L (98-107); CREATININE 3.5 mg/dL (0.6-1.3); DIFFERENTIAL COMMENT 1; GLUCOSE 145 mg/dL (74-106); SODIUM SERUM 141 mmol/L (136-145); UREA NITROGEN, BLOOD 65 mg/dL (7-18); WHITE BLOOD COUNT (AUTO) 39.1 K/uL (3.8-11.8)
[2023-09-16 05:49] LABS: POTASSIUM 2.7 mmol/L (3.5-5.1)
[2023-09-16 05:49] LABS: ABG BASE EXCESS -9.3 mmol/L (-2.0-2.0); ABG HCO3 14.7 mmol/L (22.0-26.0); ABG PCO2 26.5 mmHg (35.0-48.0); ABG PH 7.363 (7.340-7.440); ABG PO2 106.5 mmHg (75.0-100.0); ABG SITE RIGHT RADIAL; ABG TOTAL HEMOGLOBIN 10.6 G/dL (12.0-16.0); AaDO2 97.8 mmHg; COHb 0.2 % (0.0-3.9); MetHb 0.3 % (0.0-1.5); O2Hb 97.4 % (94.0-97.0); VT, ABG 500 mL
[2023-09-16] MEDS ORDERED: POTASSIUM CHLORIDE 20 MEQ POWDER PACKET GT ONE ×2 (06:00→10:00)
[2023-09-16 06:21] LABS: CALCIUM 8.4 mg/dL (8.5-10.1)
[2023-09-16 06:23] LABS: BAND % (MANUAL) 2 % (0-10)
[2023-09-16 06:24] LABS: LYMPHOCYTES % (MANUAL) 6 % (20-40); MONOCYTES % (MANUAL) 4 % (2-10); NEUTROPHILS % (MANUAL) 88 % (42-75)
[2023-09-16 06:25] LABS: PLATELET ESTIMATE ADEQUATE
[2023-09-16] MEDS: LINEZOLID 600 MG TABLET PO SCH ×2 (09:11→21:27)
[2023-09-16] MEDS: APIXABAN 2.5 MG TABLET PO SCH ×2 (09:12→21:29)
[2023-09-16 16:49] LABS: ABG BASE EXCESS -5.3 mmol/L (-2.0-2.0); ABG HCO3 18.9 mmol/L (22.0-26.0); ABG PCO2 32.1 mmHg (35.0-48.0); ABG PH 7.388 (7.340-7.440); ABG SITE RIGHT RADIAL; ABG TOTAL HEMOGLOBIN 9.3 G/dL (12.0-16.0); COHb 0.2 % (0.0-3.9); MetHb 0.4 % (0.0-1.5); O2Hb 96.1 % (94.0-97.0)
[2023-09-16] MEDS: FLUCONAZOLE 200 MG TABLET PO SCH (21:27)
[2023-09-16] MEDS: ATORVASTATIN 40 MG TABLET PO SCH (21:28)
[2023-09-16] MEDS: ACETAMINOPHEN 650 MG/20.3 ML LIQUID UDC NG PRN ×2 (21:29→21:30)
[2023-09-16] MEDS: MEROPENEM 500 MG in IV NORMAL SALINE 50 ML IV SCH (21:30)
[2023-09-17] VITALS (24 sets, daily range): BP systolic 100–135; BP diastolic 44–65; TEMP 97–100.3; O2SAT 95–99
[2023-09-17 05:13] LABS: BASOPHILS # (AUTO) 0.1 K/UL (0.0-0.2); BASOPHILS % (AUTO) 0.3 % (0.0-2.0); EOSINOPHILS # (AUTO) 0.2 K/uL (0.0-0.7); EOSINOPHILS % (AUTO) 0.8 % (0.0-7.0); HEMATOCRIT 25.6 % (31.2-41.9); HEMOGLOBIN 8.5 g/dL (10.9-14.3); LYMPHOCYTES # (AUTO) 3.1 K/uL (0.8-4.8); LYMPHOCYTES % (AUTO) 13.2 % (20.5-51.5); MEAN CORPUSCULAR HGB CONC 33 g/dL (32.3-35.6); MEAN CORPUSCULAR VOLUME 90.9 fL (75.5-95.3); MONOCYTES # (AUTO) 1.3 K/uL (0.1-1.30); MONOCYTES % (AUTO) 5.3 % (0.0-11.0); NEUTROPHILS # (AUTO) 19.2 K/uL (1.8-8.9); NEUTROPHILS % (AUTO) 80.4 % (38.5-71.5); PLATELET COUNT (AUTO) 253 K/uL (179-408); RED BLOOD CELL COUNT(AUTO) 2.82 MIL/uL (3.63-4.92); RED CELL DISTRIBUTION WIDTH 14.1 % (12.3-17.7); WHITE BLOOD COUNT (AUTO) 23.8 K/uL (3.8-11.8)
[2023-09-17 05:31] LABS: ABG BASE EXCESS 2.8 mmol/L (-2.0-2.0); ABG HCO3 24.7 mmol/L (22.0-26.0); ABG PCO2 29.3 mmHg (35.0-48.0); ABG PH 7.543 (7.340-7.440); ABG PO2 78.8 mmHg (75.0-100.0); ABG SITE RIGHT RADIAL; COHb 0.3 % (0.0-3.9); MetHb 0.2 % (0.0-1.5); O2Hb 95.8 % (94.0-97.0); VT, ABG 500 mL
[2023-09-17 05:31] LABS: DIFFERENTIAL COMMENT 1
[2023-09-17 05:37] LABS: CARBON DIOXIDE 27 mmol/L (21-32); CHLORIDE 102 mmol/L (98-107); CREATININE 2.5 mg/dL (0.6-1.3); GLUCOSE 153 mg/dL (74-106); MAGNESIUM 1.9 mg/dL (1.8-2.4); SODIUM SERUM 143 mmol/L (136-145); UREA NITROGEN, BLOOD 37 mg/dL (7-18)
[2023-09-17 06:01] LABS: CALCIUM 7.8 mg/dL (8.5-10.1); POTASSIUM 2.6 mmol/L (3.5-5.1)
[2023-09-17] MEDS ORDERED: POTASSIUM CHLORIDE 20 MEQ POWDER PACKET GT ONE (07:45)
[2023-09-17] MEDS: ERGOCALCIFEROL 50,000 UNIT CAPSULE PO SCH (07:55)
[2023-09-17] MEDS: LINEZOLID 600 MG TABLET PO SCH ×2 (07:56→20:34)
[2023-09-17] MEDS: APIXABAN 2.5 MG TABLET PO SCH ×2 (07:58→20:35)
[2023-09-17] MEDS: ACETAMINOPHEN 650 MG/20.3 ML LIQUID UDC NG PRN ×2 (08:29→16:48)
[2023-09-17] MEDS: POTASSIUM CHLORIDE 50 ML IV SCH ×4 (08:31→11:15)
[2023-09-17] MEDS ORDERED: MIDAZOLAM HCL 2 MG/2 ML VIAL IV PRN (13:15)
[2023-09-17] MEDS: FLUCONAZOLE 200 MG TABLET PO SCH (20:34)
[2023-09-17] MEDS: MEROPENEM 500 MG in IV NORMAL SALINE 50 ML IV SCH (20:34)
[2023-09-17] MEDS: ATORVASTATIN 40 MG TABLET PO SCH (20:35)
[2023-09-17] MEDS: METRONIDAZOLE 500 MG TABLET PO SCH (22:00)
[2023-09-18] VITALS (27 sets, daily range): BP systolic 108–158; BP diastolic 50–77; TEMP 97.6–99.8; O2SAT 94–99
[2023-09-18 04:58] LABS: BASOPHILS # (AUTO) 0.1 K/UL (0.0-0.2); BASOPHILS % (AUTO) 0.5 % (0.0-2.0); EOSINOPHILS # (AUTO) 0.5 K/uL (0.0-0.7); EOSINOPHILS % (AUTO) 2.3 % (0.0-7.0); HEMATOCRIT 25.8 % (31.2-41.9); HEMOGLOBIN 8.4 g/dL (10.9-14.3); LYMPHOCYTES # (AUTO) 3.5 K/uL (0.8-4.8); LYMPHOCYTES % (AUTO) 17.7 % (20.5-51.5); MEAN CORPUSCULAR HEMOGLOBIN 29.9 uug (24.7-32.8); MEAN CORPUSCULAR HGB CONC 33 g/dL (32.3-35.6); MEAN CORPUSCULAR VOLUME 91.4 fL (75.5-95.3); MONOCYTES # (AUTO) 1.7 K/uL (0.1-1.30); MONOCYTES % (AUTO) 8.6 % (0.0-11.0); NEUTROPHILS % (AUTO) 70.9 % (38.5-71.5); PLATELET COUNT (AUTO) 264 K/uL (179-408); RED BLOOD CELL COUNT(AUTO) 2.83 MIL/uL (3.63-4.92); RED CELL DISTRIBUTION WIDTH 14.2 % (12.3-17.7); WHITE BLOOD COUNT (AUTO) 19.7 K/uL (3.8-11.8)
[2023-09-18 05:18] LABS: CARBON DIOXIDE 26 mmol/L (21-32); CHLORIDE 104 mmol/L (98-107); CREATININE 3.8 mg/dL (0.6-1.3); GLUCOSE 101 mg/dL (74-106); MAGNESIUM 2.2 mg/dL (1.8-2.4); PHOSPHOROUS 2.9 mg/dL (2.5-4.9); POTASSIUM 3.4 mmol/L (3.5-5.1); SODIUM SERUM 141 mmol/L (136-145); UREA NITROGEN, BLOOD 54 mg/dL (7-18)
[2023-09-18 05:20] LABS: DIFFERENTIAL COMMENT 1
[2023-09-18] MEDS: METRONIDAZOLE 500 MG TABLET PO SCH ×3 (06:22→21:20)
[2023-09-18 07:48] LABS: ABG BASE EXCESS 0.6 mmol/L (-2.0-2.0); ABG HCO3 24.1 mmol/L (22.0-26.0); ABG PCO2 33.9 mmHg (35.0-48.0); ABG PH 7.469 (7.340-7.440); ABG PO2 117.6 mmHg (75.0-100.0); ABG SITE LEFT RADIAL; ABG TOTAL HEMOGLOBIN 9.2 G/dL (12.0-16.0); AaDO2 98.5 mmHg; COHb 0.2 % (0.0-3.9); MetHb 0.3 % (0.0-1.5); O2Hb 97.3 % (94.0-97.0)
[2023-09-18] MEDS: APIXABAN 2.5 MG TABLET PO SCH ×2 (08:13→21:19)
[2023-09-18] MEDS: LINEZOLID 600 MG TABLET PO SCH (08:14)
[2023-09-18] MEDS: VITAL AF 1.2 1,000 ML LIQUID GT PRN (08:23)
[2023-09-18] MEDS ORDERED: DC PROPOFOL ONCE EXTUBATED XX PRN (08:50)
[2023-09-18] MEDS ORDERED: POTASSIUM CHLORIDE 50 ML IV SCH (10:30)
[2023-09-18 13:15] LABS: HEPATITIS B SURFACE AB, QUAL Non Reactive (.); HEPATITIS B SURFACE AG Negative (Negative)
[2023-09-18] MEDS: IPRATROPIUM BROMIDE 0.5 MG/2.5 ML NEBU NEB PRN ×2 (14:41→23:49)
[2023-09-18] MEDS: ALBUTEROL SULFATE 2.5 MG/3 ML NEBU NEB PRN ×2 (14:41→23:49)
[2023-09-18] MEDS ORDERED: REMEDY ESSENTIAL ZINC PASTE 113 GM TOP PRN (18:30)
[2023-09-18] MEDS: FLUCONAZOLE 200 MG TABLET PO SCH (21:20)
[2023-09-18] MEDS: ACETAMINOPHEN 650 MG/20.3 ML LIQUID UDC NG PRN (21:20)
[2023-09-18] MEDS: ATORVASTATIN 40 MG TABLET PO SCH (21:20)
[2023-09-19] VITALS (27 sets, daily range): BP systolic 100–147; BP diastolic 48–78; TEMP 97.3–99.3; O2SAT 96–100
[2023-09-19 04:50] LABS: BASOPHILS # (AUTO) 0.1 K/UL (0.0-0.2); BASOPHILS % (AUTO) 0.5 % (0.0-2.0); EOSINOPHILS # (AUTO) 0.4 K/uL (0.0-0.7); EOSINOPHILS % (AUTO) 2.4 % (0.0-7.0); HEMOGLOBIN 8.3 g/dL (10.9-14.3); LYMPHOCYTES # (AUTO) 3.3 K/uL (0.8-4.8); LYMPHOCYTES % (AUTO) 20.5 % (20.5-51.5); MEAN CORPUSCULAR HEMOGLOBIN 30.4 uug (24.7-32.8); MEAN CORPUSCULAR HGB CONC 33 g/dL (32.3-35.6); MEAN CORPUSCULAR VOLUME 91.9 fL (75.5-95.3); MONOCYTES # (AUTO) 1.5 K/uL (0.1-1.30); MONOCYTES % (AUTO) 9.3 % (0.0-11.0); NEUTROPHILS # (AUTO) 10.7 K/uL (1.8-8.9); NEUTROPHILS % (AUTO) 67.3 % (38.5-71.5); PLATELET COUNT (AUTO) 233 K/uL (179-408); RED BLOOD CELL COUNT(AUTO) 2.72 MIL/uL (3.63-4.92); RED CELL DISTRIBUTION WIDTH 14.2 % (12.3-17.7); WHITE BLOOD COUNT (AUTO) 15.9 K/uL (3.8-11.8)
[2023-09-19 04:52] LABS: DIFFERENTIAL COMMENT 1
[2023-09-19 05:08] LABS: CALCIUM 8.4 mg/dL (8.5-10.1); CARBON DIOXIDE 24 mmol/L (21-32); CHLORIDE 103 mmol/L (98-107); CREATININE 4.6 mg/dL (0.6-1.3); GLUCOSE 111 mg/dL (74-106); MAGNESIUM 2.3 mg/dL (1.8-2.4); PHOSPHOROUS 5.4 mg/dL (2.5-4.9); POTASSIUM 3.8 mmol/L (3.5-5.1); SODIUM SERUM 141 mmol/L (136-145); UREA NITROGEN, BLOOD 71 mg/dL (7-18)
[2023-09-19 06:01] LABS: ABG BASE EXCESS -1.1 mmol/L (-2.0-2.0); ABG HCO3 22.6 mmol/L (22.0-26.0); ABG PCO2 33.9 mmHg (35.0-48.0); ABG PH 7.442 (7.340-7.440); ABG PO2 86.6 mmHg (75.0-100.0); ABG SITE RIGHT RADIAL; ABG TOTAL HEMOGLOBIN 9.3 G/dL (12.0-16.0); COHb 0.3 % (0.0-3.9); MetHb 0.3 % (0.0-1.5); O2Hb 96.1 % (94.0-97.0)
[2023-09-19] MEDS: METRONIDAZOLE 500 MG TABLET PO SCH ×3 (06:14→21:25)
[2023-09-19] MEDS: APIXABAN 2.5 MG TABLET PO SCH ×2 (08:29→21:26)
[2023-09-19] MEDS: PROTEIN SUPPLEMENT (PROSTAT) 30 ML LIQUID PO SCH (08:29)
[2023-09-19] MEDS: VITAL AF 1.2 1,000 ML LIQUID GT PRN (08:32)
[2023-09-19] MEDS: FLUCONAZOLE 200 MG TABLET PO SCH (21:25)
[2023-09-19] MEDS: ATORVASTATIN 40 MG TABLET PO SCH (21:27)
[2023-09-19] MEDS: ACETAMINOPHEN 650 MG/20.3 ML LIQUID UDC NG PRN (21:27)
[2023-09-20] VITALS (29 sets, daily range): BP systolic 85–159; BP diastolic 51–84; TEMP 98.4–99; O2SAT 96–99
[2023-09-20] MEDS: ALBUTEROL SULFATE 2.5 MG/3 ML NEBU NEB PRN (02:54)
[2023-09-20] MEDS: IPRATROPIUM BROMIDE 0.5 MG/2.5 ML NEBU NEB PRN (02:54)
[2023-09-20] MEDS: METRONIDAZOLE 500 MG TABLET PO SCH ×3 (06:10→21:28)
[2023-09-20 06:49] LABS: BASOPHILS # (AUTO) 0.1 K/UL (0.0-0.2); BASOPHILS % (AUTO) 0.8 % (0.0-2.0); EOSINOPHILS # (AUTO) 0.3 K/uL (0.0-0.7); HEMATOCRIT 25.4 % (31.2-41.9); HEMOGLOBIN 8.3 g/dL (10.9-14.3); LYMPHOCYTES # (AUTO) 2.2 K/uL (0.8-4.8); LYMPHOCYTES % (AUTO) 16.5 % (20.5-51.5); MEAN CORPUSCULAR HEMOGLOBIN 30.2 uug (24.7-32.8); MEAN CORPUSCULAR HGB CONC 33 g/dL (32.3-35.6); MEAN CORPUSCULAR VOLUME 91.8 fL (75.5-95.3); MONOCYTES # (AUTO) 1.1 K/uL (0.1-1.30); MONOCYTES % (AUTO) 8.2 % (0.0-11.0); NEUTROPHILS # (AUTO) 9.7 K/uL (1.8-8.9); NEUTROPHILS % (AUTO) 72.5 % (38.5-71.5); PLATELET COUNT (AUTO) 225 K/uL (179-408); RED BLOOD CELL COUNT(AUTO) 2.76 MIL/uL (3.63-4.92); RED CELL DISTRIBUTION WIDTH 14.2 % (12.3-17.7); WHITE BLOOD COUNT (AUTO) 13.5 K/uL (3.8-11.8)
[2023-09-20 07:18] LABS: CALCIUM 8.5 mg/dL (8.5-10.1); CARBON DIOXIDE 28 mmol/L (21-32); CHLORIDE 104 mmol/L (98-107); CREATININE 3.1 mg/dL (0.6-1.3); GLUCOSE 126 mg/dL (74-106); MAGNESIUM 2.2 mg/dL (1.8-2.4); PHOSPHOROUS 4.1 mg/dL (2.5-4.9); POTASSIUM 2.9 mmol/L (3.5-5.1); SODIUM SERUM 143 mmol/L (136-145); UREA NITROGEN, BLOOD 55 mg/dL (7-18)
[2023-09-20 07:19] LABS: DIFFERENTIAL COMMENT 1
[2023-09-20] MEDS: APIXABAN 2.5 MG TABLET PO SCH ×2 (08:27→21:29)
[2023-09-20] MEDS: PROTEIN SUPPLEMENT (PROSTAT) 30 ML LIQUID PO SCH (08:27)
[2023-09-20] MEDS ORDERED: POTASSIUM CHLORIDE 10 MEQ TAB.PRT.SR PO ONE (14:00)
[2023-09-20] MEDS: ONDANSETRON 4 MG/2 ML VIAL IV PRN (14:23)
[2023-09-20] MEDS: ACETAMINOPHEN 650 MG/20.3 ML LIQUID UDC NG PRN (14:23)
[2023-09-20] MEDS: ATORVASTATIN 40 MG TABLET PO SCH (21:28)
[2023-09-20] MEDS: FLUCONAZOLE 200 MG TABLET PO SCH (21:28)
[2023-09-21] VITALS (25 sets, daily range): BP systolic 107–165; BP diastolic 62–91; TEMP 97.8–99.2; O2SAT 92–99
[2023-09-21 05:10] LABS: BASOPHILS # (AUTO) 0.1 K/UL (0.0-0.2); BASOPHILS % (AUTO) 0.6 % (0.0-2.0); EOSINOPHILS # (AUTO) 0.1 K/uL (0.0-0.7); HEMATOCRIT 26.4 % (31.2-41.9); HEMOGLOBIN 8.5 g/dL (10.9-14.3); LYMPHOCYTES # (AUTO) 2.4 K/uL (0.8-4.8); LYMPHOCYTES % (AUTO) 16.1 % (20.5-51.5); MEAN CORPUSCULAR HEMOGLOBIN 29.8 uug (24.7-32.8); MEAN CORPUSCULAR HGB CONC 32 g/dL (32.3-35.6); MEAN CORPUSCULAR VOLUME 92.2 fL (75.5-95.3); MONOCYTES # (AUTO) 0.8 K/uL (0.1-1.30); MONOCYTES % (AUTO) 5.6 % (0.0-11.0); NEUTROPHILS # (AUTO) 11.3 K/uL (1.8-8.9); NEUTROPHILS % (AUTO) 76.7 % (38.5-71.5); PLATELET COUNT (AUTO) 222 K/uL (179-408); RED BLOOD CELL COUNT(AUTO) 2.86 MIL/uL (3.63-4.92); RED CELL DISTRIBUTION WIDTH 14.4 % (12.3-17.7); WHITE BLOOD COUNT (AUTO) 14.7 K/uL (3.8-11.8)
[2023-09-21 05:17] LABS: DIFFERENTIAL COMMENT 1
[2023-09-21 05:27] LABS: CALCIUM 8.7 mg/dL (8.5-10.1); CARBON DIOXIDE 27 mmol/L (21-32); CHLORIDE 105 mmol/L (98-107); CREATININE 3.4 mg/dL (0.6-1.3); GLUCOSE 137 mg/dL (74-106); MAGNESIUM 2.1 mg/dL (1.8-2.4); PHOSPHOROUS 5.4 mg/dL (2.5-4.9); UREA NITROGEN, BLOOD 73 mg/dL (7-18)
[2023-09-21 05:35] LABS: SODIUM SERUM 143 mmol/L (136-145)
[2023-09-21 05:45] LABS: POTASSIUM 2.7 mmol/L (3.5-5.1)
[2023-09-21] MEDS: METRONIDAZOLE 500 MG TABLET PO SCH (06:26)
[2023-09-21] MEDS: PROTEIN SUPPLEMENT (PROSTAT) 30 ML LIQUID PO SCH (08:17)
[2023-09-21] MEDS ORDERED: POTASSIUM CHLORIDE 20 MEQ POWDER PACKET GT ONE (08:30)
[2023-09-21] MEDS: APIXABAN 2.5 MG TABLET PO SCH ×2 (08:31→21:27)
[2023-09-21] MEDS: AMLODIPINE 2.5 MG TABLET PO SCH (08:31)
[2023-09-21] MEDS: VITAL AF 1.2 1,000 ML LIQUID GT PRN (08:39)
[2023-09-21] MEDS: ACETAMINOPHEN 650 MG/20.3 ML LIQUID UDC NG PRN (13:54)
[2023-09-21] MEDS: FLUCONAZOLE 200 MG TABLET PO SCH (21:26)
[2023-09-21] MEDS: ATORVASTATIN 40 MG TABLET PO SCH (21:26)
[2023-09-22] VITALS (24 sets, daily range): BP systolic 96–144; BP diastolic 42–82; TEMP 97.7–99.3; O2SAT 94–97
[2023-09-22 05:06] LABS: BASOPHILS # (AUTO) 0.1 K/UL (0.0-0.2); BASOPHILS % (AUTO) 0.7 % (0.0-2.0); EOSINOPHILS # (AUTO) 0.2 K/uL (0.0-0.7); EOSINOPHILS % (AUTO) 1.5 % (0.0-7.0); HEMATOCRIT 27.4 % (31.2-41.9); HEMOGLOBIN 8.9 g/dL (10.9-14.3); LYMPHOCYTES # (AUTO) 3.3 K/uL (0.8-4.8); LYMPHOCYTES % (AUTO) 21.3 % (20.5-51.5); MEAN CORPUSCULAR HEMOGLOBIN 30.2 uug (24.7-32.8); MEAN CORPUSCULAR HGB CONC 33 g/dL (32.3-35.6); MONOCYTES # (AUTO) 1.1 K/uL (0.1-1.30); NEUTROPHILS # (AUTO) 10.9 K/uL (1.8-8.9); NEUTROPHILS % (AUTO) 69.5 % (38.5-71.5); PLATELET COUNT (AUTO) 202 K/uL (179-408); RED BLOOD CELL COUNT(AUTO) 2.95 MIL/uL (3.63-4.92); RED CELL DISTRIBUTION WIDTH 14.4 % (12.3-17.7); WHITE BLOOD COUNT (AUTO) 15.6 K/uL (3.8-11.8)
[2023-09-22 05:17] LABS: DIFFERENTIAL COMMENT 1
[2023-09-22 05:25] LABS: CALCIUM 8.7 mg/dL (8.5-10.1); CARBON DIOXIDE 28 mmol/L (21-32); CHLORIDE 108 mmol/L (98-107); CREATININE 2.2 mg/dL (0.6-1.3); GLUCOSE 130 mg/dL (74-106); PHOSPHOROUS 3.2 mg/dL (2.5-4.9); POTASSIUM 3.1 mmol/L (3.5-5.1); SODIUM SERUM 147 mmol/L (136-145); UREA NITROGEN, BLOOD 55 mg/dL (7-18)
[2023-09-22 06:45] LABS: ABG HCO3 24.6 mmol/L (22.0-26.0); ABG PH 7.465 (7.340-7.440); ABG PO2 74.3 mmHg (75.0-100.0); ABG SITE RIGHT RADIAL; ABG TOTAL HEMOGLOBIN 8.9 G/dL (12.0-16.0); AaDO2 95.8 mmHg; COHb 0.3 % (0.0-3.9); MetHb 0.3 % (0.0-1.5); O2Hb 94.4 % (94.0-97.0)
[2023-09-22] MEDS: AMLODIPINE 2.5 MG TABLET PO SCH (08:17)
[2023-09-22] MEDS: PROTEIN SUPPLEMENT (PROSTAT) 30 ML LIQUID PO SCH (08:17)
[2023-09-22] MEDS: APIXABAN 2.5 MG TABLET PO SCH ×2 (08:18→21:03)
[2023-09-22] MEDS: VITAL AF 1.2 1,000 ML LIQUID GT PRN (09:54)
[2023-09-22] MEDS ORDERED: POTASSIUM CHLORIDE 20 MEQ POWDER PACKET GT ONE ×2 (10:00→12:00)
[2023-09-22] MEDS ORDERED: POTASSIUM CHLORIDE 20 MEQ POWDER PACKET PO ONE (12:00)
[2023-09-22] MEDS: ATORVASTATIN 40 MG TABLET PO SCH (21:03)
[2023-09-23] VITALS (24 sets, daily range): BP systolic 96–147; BP diastolic 42–85; TEMP 97.4–99; O2SAT 97–99
[2023-09-23 05:04] LABS: BASOPHILS # (AUTO) 0.2 K/UL (0.0-0.2); BASOPHILS % (AUTO) 1.2 % (0.0-2.0); DIFFERENTIAL COMMENT 1; EOSINOPHILS # (AUTO) 0.2 K/uL (0.0-0.7); EOSINOPHILS % (AUTO) 1.3 % (0.0-7.0); HEMATOCRIT 28.6 % (31.2-41.9); HEMOGLOBIN 9.2 g/dL (10.9-14.3); LYMPHOCYTES % (AUTO) 26.9 % (20.5-51.5); MEAN CORPUSCULAR HEMOGLOBIN 29.9 uug (24.7-32.8); MEAN CORPUSCULAR HGB CONC 32 g/dL (32.3-35.6); MEAN CORPUSCULAR VOLUME 93.4 fL (75.5-95.3); MONOCYTES # (AUTO) 1.3 K/uL (0.1-1.30); MONOCYTES % (AUTO) 8.6 % (0.0-11.0); NEUTROPHILS # (AUTO) 9.1 K/uL (1.8-8.9); PLATELET COUNT (AUTO) 226 K/uL (179-408); RED BLOOD CELL COUNT(AUTO) 3.06 MIL/uL (3.63-4.92); RED CELL DISTRIBUTION WIDTH 14.8 % (12.3-17.7); WHITE BLOOD COUNT (AUTO) 14.7 K/uL (3.8-11.8)
[2023-09-23 05:18] LABS: CALCIUM 8.8 mg/dL (8.5-10.1); CARBON DIOXIDE 28 mmol/L (21-32); CHLORIDE 110 mmol/L (98-107); CREATININE 2.2 mg/dL (0.6-1.3); GLUCOSE 110 mg/dL (74-106); MAGNESIUM 1.9 mg/dL (1.8-2.4); PHOSPHOROUS 4.6 mg/dL (2.5-4.9); POTASSIUM 3.1 mmol/L (3.5-5.1); SODIUM SERUM 148 mmol/L (136-145); UREA NITROGEN, BLOOD 74 mg/dL (7-18)
[2023-09-23 08:08] LABS: HEPATITIS B CORE AB, IgM Negative (Negative); HEPATITIS B CORE AB, TOTAL Negative (Negative); HEPATITIS C VIRUS ANTIBODY Non Reactive (Non Reactive)
[2023-09-23] MEDS: AMLODIPINE 2.5 MG TABLET PO SCH (09:03)
[2023-09-23] MEDS: APIXABAN 2.5 MG TABLET PO SCH ×2 (09:04→20:19)
[2023-09-23] MEDS: PROTEIN SUPPLEMENT (PROSTAT) 30 ML LIQUID PO SCH (09:04)
[2023-09-23] MEDS ORDERED: POTASSIUM CHLORIDE 20 MEQ TAB.PRT.SR PO ONE (10:00)
[2023-09-23] MEDS: ONDANSETRON 4 MG/2 ML VIAL IV PRN (14:47)
[2023-09-23] MEDS: ATORVASTATIN 40 MG TABLET PO SCH (20:18)
[2023-09-24] VITALS (27 sets, daily range): BP systolic 94–145; BP diastolic 62–79; TEMP 98.1–98.8; O2SAT 94–98
[2023-09-24 05:13] LABS: BASOPHILS # (AUTO) 0.1 K/UL (0.0-0.2); BASOPHILS % (AUTO) 0.9 % (0.0-2.0); EOSINOPHILS # (AUTO) 0.1 K/uL (0.0-0.7); EOSINOPHILS % (AUTO) 0.6 % (0.0-7.0); HEMATOCRIT 28.3 % (31.2-41.9); HEMOGLOBIN 9.2 g/dL (10.9-14.3); LYMPHOCYTES % (AUTO) 20.1 % (20.5-51.5); MEAN CORPUSCULAR HEMOGLOBIN 30.2 uug (24.7-32.8); MEAN CORPUSCULAR HGB CONC 33 g/dL (32.3-35.6); MEAN CORPUSCULAR VOLUME 92.9 fL (75.5-95.3); MONOCYTES # (AUTO) 1.1 K/uL (0.1-1.30); MONOCYTES % (AUTO) 7.5 % (0.0-11.0); NEUTROPHILS # (AUTO) 10.7 K/uL (1.8-8.9); NEUTROPHILS % (AUTO) 70.9 % (38.5-71.5); PLATELET COUNT (AUTO) 261 K/uL (179-408); RED BLOOD CELL COUNT(AUTO) 3.05 MIL/uL (3.63-4.92); RED CELL DISTRIBUTION WIDTH 14.6 % (12.3-17.7)
[2023-09-24 05:28] LABS: DIFFERENTIAL COMMENT 1
[2023-09-24 05:33] LABS: ALANINE AMINOTRANSFERASE 46 U/L (14-59); ALBUMIN 2.5 g/dL (3.4-5.0); ALKALINE PHOSPHATASE 86 U/L (50-136); ASPARTATE AMINOTRANSFERASE 34 U/L (15-37); BILIRUBIN,DIRECT 0.1 mg/dL (0.0-0.2); BILIRUBIN,TOTAL 0.4 mg/dL (0.2-1.0); CARBON DIOXIDE 25 mmol/L (21-32); CHLORIDE 112 mmol/L (98-107); GLUCOSE 119 mg/dL (74-106); MAGNESIUM 1.8 mg/dL (1.8-2.4); PHOSPHOROUS 5.2 mg/dL (2.5-4.9); SODIUM SERUM 149 mmol/L (136-145); UREA NITROGEN, BLOOD 78 mg/dL (7-18)
[2023-09-24 05:34] LABS: CALCIUM 8.4 mg/dL (8.5-10.1)
[2023-09-24] MEDS: PROTEIN SUPPLEMENT (PROSTAT) 30 ML LIQUID PO SCH (08:00)
[2023-09-24] MEDS: ERGOCALCIFEROL 50,000 UNIT CAPSULE PO SCH (08:35)
[2023-09-24] MEDS: APIXABAN 2.5 MG TABLET PO SCH ×2 (08:36→20:39)
[2023-09-24] MEDS: AMLODIPINE 2.5 MG TABLET PO SCH (08:37)
[2023-09-24] MEDS: ACETAMINOPHEN 650 MG/20.3 ML LIQUID UDC NG PRN (15:58)
[2023-09-24] MEDS: POTASSIUM CHLORIDE 50 ML IV SCH ×2 (16:06→16:58)
[2023-09-24] MEDS: ATORVASTATIN 40 MG TABLET PO SCH (20:37)
[2023-09-24] MEDS: ONDANSETRON 4 MG/2 ML VIAL IV PRN (22:37)
[2023-09-25] VITALS (26 sets, daily range): BP systolic 91–141; BP diastolic 55–82; TEMP 97.6–99.1; O2SAT 95–98
[2023-09-25 05:01] LABS: BASOPHILS # (AUTO) 0.1 K/UL (0.0-0.2); BASOPHILS % (AUTO) 0.6 % (0.0-2.0); EOSINOPHILS # (AUTO) 0.1 K/uL (0.0-0.7); EOSINOPHILS % (AUTO) 0.8 % (0.0-7.0); HEMATOCRIT 27.8 % (31.2-41.9); HEMOGLOBIN 8.9 g/dL (10.9-14.3); LYMPHOCYTES # (AUTO) 2.8 K/uL (0.8-4.8); MEAN CORPUSCULAR HEMOGLOBIN 29.8 uug (24.7-32.8); MEAN CORPUSCULAR HGB CONC 32 g/dL (32.3-35.6); MONOCYTES # (AUTO) 1.3 K/uL (0.1-1.30); MONOCYTES % (AUTO) 7.6 % (0.0-11.0); NEUTROPHILS # (AUTO) 12.4 K/uL (1.8-8.9); PLATELET COUNT (AUTO) 265 K/uL (179-408); RED BLOOD CELL COUNT(AUTO) 2.99 MIL/uL (3.63-4.92); RED CELL DISTRIBUTION WIDTH 14.3 % (12.3-17.7); WHITE BLOOD COUNT (AUTO) 16.7 K/uL (3.8-11.8)
[2023-09-25 05:31] LABS: DIFFERENTIAL COMMENT 1
[2023-09-25 05:37] LABS: CALCIUM 8.6 mg/dL (8.5-10.1); CARBON DIOXIDE 30 mmol/L (21-32); CHLORIDE 106 mmol/L (98-107); CREATININE 1.6 mg/dL (0.6-1.3); GLUCOSE 118 mg/dL (74-106); MAGNESIUM 1.7 mg/dL (1.8-2.4); POTASSIUM 3.5 mmol/L (3.5-5.1); SODIUM SERUM 144 mmol/L (136-145); UREA NITROGEN, BLOOD 58 mg/dL (7-18)
[2023-09-25 06:18] LABS: ABG BASE EXCESS 3.9 mmol/L (-2.0-2.0); ABG HCO3 26.9 mmol/L (22.0-26.0); ABG PCO2 34.6 mmHg (35.0-48.0); ABG PH 7.509 (7.340-7.440); ABG PO2 85.5 mmHg (75.0-100.0); ABG SITE RIGHT RADIAL; ABG TOTAL HEMOGLOBIN 9.8 G/dL (12.0-16.0); AaDO2 97.3 mmHg; COHb 0.3 % (0.0-3.9)
[2023-09-25] MEDS: PROTEIN SUPPLEMENT (PROSTAT) 30 ML LIQUID PO SCH (08:00)
[2023-09-25] MEDS: ONDANSETRON 4 MG/2 ML VIAL IV PRN (08:57)
[2023-09-25] MEDS: APIXABAN 2.5 MG TABLET PO SCH ×2 (09:00→20:47)
[2023-09-25] MEDS: AMLODIPINE 2.5 MG TABLET PO SCH (09:00)
[2023-09-25] MEDS ORDERED: MAGNESIUM OXIDE 400 MG TABLET PO ONE (14:30)
[2023-09-25] MEDS ORDERED: IV D5 1/2 NS 1000 ML 1,000 ML IV SCH (14:45)
[2023-09-25] MEDS: METOCLOPRAMIDE HCL 10 MG/2 ML VIAL IV SCH ×2 (16:10→21:49)
[2023-09-26] VITALS (22 sets, daily range): BP systolic 93–134; BP diastolic 46–77; TEMP 97.8–99; O2SAT 95–99
[2023-09-26 05:13] LABS: BASOPHILS # (AUTO) 0.1 K/UL (0.0-0.2); BASOPHILS % (AUTO) 0.5 % (0.0-2.0); EOSINOPHILS # (AUTO) 0.2 K/uL (0.0-0.7); EOSINOPHILS % (AUTO) 1.1 % (0.0-7.0); HEMATOCRIT 27.3 % (31.2-41.9); HEMOGLOBIN 8.9 g/dL (10.9-14.3); LYMPHOCYTES # (AUTO) 2.6 K/uL (0.8-4.8); LYMPHOCYTES % (AUTO) 18.6 % (20.5-51.5); MEAN CORPUSCULAR HEMOGLOBIN 30.3 uug (24.7-32.8); MEAN CORPUSCULAR HGB CONC 33 g/dL (32.3-35.6); MONOCYTES # (AUTO) 1.2 K/uL (0.1-1.30); NEUTROPHILS # (AUTO) 9.8 K/uL (1.8-8.9); NEUTROPHILS % (AUTO) 70.8 % (38.5-71.5); PLATELET COUNT (AUTO) 307 K/uL (179-408); RED BLOOD CELL COUNT(AUTO) 2.94 MIL/uL (3.63-4.92); RED CELL DISTRIBUTION WIDTH 14.5 % (12.3-17.7); WHITE BLOOD COUNT (AUTO) 13.8 K/uL (3.8-11.8)
[2023-09-26 05:47] LABS: *BILIRUBIN,URIN NEGATIVE (NEGATIVE); *BLOOD, URINE 3+ (NEGATIVE); *COLOR,URINE YELLOW (YELLOW); *KETONES,URINE NEGATIVE (NEGATIVE); *UROBILINOGEN,URINE 0.2 E.U./dl (NORMAL); LEUKOCYTE ESTERASE ,URINE 3+ (NEGATIVE); NITRITE, URINE POSITIVE (NEGATIVE); UGLUCOSE NEGATIVE (NEGATIVE)
[2023-09-26 05:54] LABS: DIFFERENTIAL COMMENT 1
[2023-09-26 06:01] LABS: ALANINE AMINOTRANSFERASE 37 U/L (14-59); ALBUMIN 2.6 g/dL (3.4-5.0); ALKALINE PHOSPHATASE 78 U/L (50-136); ASPARTATE AMINOTRANSFERASE 29 U/L (15-37); BILIRUBIN,DIRECT 0.2 mg/dL (0.0-0.2); BILIRUBIN,TOTAL 0.7 mg/dL (0.2-1.0); CALCIUM 8.8 mg/dL (8.5-10.1); CARBON DIOXIDE 31 mmol/L (21-32); CHLORIDE 105 mmol/L (98-107); CREATININE 1.9 mg/dL (0.6-1.3); GLUCOSE 129 mg/dL (74-106); MAGNESIUM 1.7 mg/dL (1.8-2.4); PHOSPHOROUS 3.8 mg/dL (2.5-4.9); POTASSIUM 4.3 mmol/L (3.5-5.1); SODIUM SERUM 145 mmol/L (136-145); TOTAL PROTEIN, SERUM 6.2 g/dL (6.4-8.2); UREA NITROGEN, BLOOD 61 mg/dL (7-18)
[2023-09-26 06:11] LABS: *CLARITY,URINE CLOUDY (CLEAR); *PROTEIN,URINE 3+ (NEGATIVE)
[2023-09-26] MEDS: METOCLOPRAMIDE HCL 10 MG/2 ML VIAL IV SCH ×3 (06:27→21:38)
[2023-09-26] MEDS: IV D5 1/2 NS 1000 ML 1,000 ML IV PRN ×2 (06:28→22:28)
[2023-09-26] MEDS: PROTEIN SUPPLEMENT (PROSTAT) 30 ML LIQUID PO SCH (08:56)
[2023-09-26] MEDS: AMLODIPINE 2.5 MG TABLET PO SCH (08:59)
[2023-09-26] MEDS: APIXABAN 2.5 MG TABLET PO SCH ×2 (09:00→21:12)
[2023-09-26] MEDS ORDERED: MAGNESIUM OXIDE 400 MG TABLET PO ONE (11:00)
[2023-09-26 15:31] LABS: BACTERIA,URINE MANY /HPF (NONE SEEN); RBC,URINE TNTC /HPF (0-3); SQUAMOUS EPITHELIAL CELL,UR FEW /HPF (NONE SEEN); URINE AMORPHOUS URATE MODERATE /HPF; WBC,URINE TNTC /HPF (0-3)
[2023-09-27] VITALS (18 sets, daily range): BP systolic 114–149; BP diastolic 43–69; TEMP 97–99; O2SAT 95–99
[2023-09-27] MEDS: METOCLOPRAMIDE HCL 10 MG/2 ML VIAL IV SCH ×3 (06:05→21:09)
[2023-09-27 06:25] LABS: CALCIUM 8.4 mg/dL (8.5-10.1); CARBON DIOXIDE 30 mmol/L (21-32); CHLORIDE 107 mmol/L (98-107); CREATININE 1.7 mg/dL (0.6-1.3); GLUCOSE 110 mg/dL (74-106); MAGNESIUM 1.6 mg/dL (1.8-2.4); POTASSIUM 4.6 mmol/L (3.5-5.1); SODIUM SERUM 145 mmol/L (136-145); UREA NITROGEN, BLOOD 53 mg/dL (7-18)
[2023-09-27] MEDS: PROTEIN SUPPLEMENT (PROSTAT) 30 ML LIQUID PO SCH (08:00)
[2023-09-27] MEDS: AMLODIPINE 2.5 MG TABLET PO SCH (09:13)
[2023-09-27] MEDS: APIXABAN 2.5 MG TABLET PO SCH ×2 (09:14→20:50)
[2023-09-27] MEDS ORDERED: MAGNESIUM OXIDE 400 MG TABLET PO ONE (14:00)
[2023-09-27] MEDS: ACETAMINOPHEN 650 MG SUPP.RECT RC PRN (20:51)
[2023-09-28 00:42] VITALS: BP 134/71; O2SAT 95
[2023-09-28 04:53] VITALS: BP 129/80; TEMP 99; O2SAT 95
[2023-09-28] MEDS: METOCLOPRAMIDE HCL 10 MG/2 ML VIAL IV SCH (05:20)
[2023-09-28 08:09] LABS: BASOPHILS # (AUTO) 0.1 K/UL (0.0-0.2); EOSINOPHILS # (AUTO) 0.3 K/uL (0.0-0.7); NEUTROPHILS # (AUTO) 5.7 K/uL (1.8-8.9)
[2023-09-28 08:13] LABS: BASOPHILS % (AUTO) 0.7 % (0.0-2.0); EOSINOPHILS % (AUTO) 2.8 % (0.0-7.0); HEMATOCRIT 22.4 % (31.2-41.9); LYMPHOCYTES # (AUTO) 2.5 K/uL (0.8-4.8); LYMPHOCYTES % (AUTO) 26.9 % (20.5-51.5); MEAN CORPUSCULAR HEMOGLOBIN 30.6 uug (24.7-32.8); MEAN CORPUSCULAR HGB CONC 32 g/dL (32.3-35.6); MEAN CORPUSCULAR VOLUME 94.8 fL (75.5-95.3); MONOCYTES # (AUTO) 0.8 K/uL (0.1-1.30); MONOCYTES % (AUTO) 8.2 % (0.0-11.0); NEUTROPHILS % (AUTO) 61.4 % (38.5-71.5); PLATELET COUNT (AUTO) 224 K/uL (179-408); RED CELL DISTRIBUTION WIDTH 15.1 % (12.3-17.7); WHITE BLOOD COUNT (AUTO) 9.4 K/uL (3.8-11.8)
[2023-09-28 08:40] LABS: ALANINE AMINOTRANSFERASE 34 U/L (14-59); ALBUMIN 2.3 g/dL (3.4-5.0); ALKALINE PHOSPHATASE 80 U/L (50-136); ASPARTATE AMINOTRANSFERASE 38 U/L (15-37); BILIRUBIN,TOTAL 0.9 mg/dL (0.2-1.0); CALCIUM 8.7 mg/dL (8.5-10.1); CARBON DIOXIDE 28 mmol/L (21-32); CHLORIDE 106 mmol/L (98-107); CREATININE 1.4 mg/dL (0.6-1.3); GLUCOSE 102 mg/dL (74-106); MAGNESIUM 1.7 mg/dL (1.8-2.4); PHOSPHOROUS 4.1 mg/dL (2.5-4.9); SODIUM SERUM 141 mmol/L (136-145); TOTAL PROTEIN, SERUM 5.9 g/dL (6.4-8.2); UREA NITROGEN, BLOOD 46 mg/dL (7-18)
[2023-09-28 08:42] LABS: POTASSIUM 4.7 mmol/L (3.5-5.1)
[2023-09-28 08:46] LABS: HEMOGLOBIN 7.2 g/dL (10.9-14.3); RED BLOOD CELL COUNT(AUTO) 2.36 MIL/uL (3.63-4.92)
[2023-09-28 08:47] LABS: DIFFERENTIAL COMMENT 1
[2023-09-28] MEDS: APIXABAN 2.5 MG TABLET PO SCH ×2 (09:00→21:21)
[2023-09-28 09:54] LABS: IRON, SERUM 25 ug/dL (50-175)
[2023-09-28] MEDS: PROTEIN SUPPLEMENT (PROSTAT) 30 ML LIQUID PO SCH (10:07)
[2023-09-28] MEDS: AMLODIPINE 2.5 MG TABLET PO SCH (10:14)
[2023-09-28 12:23] LABS: THYROID STIMULATING HORMONE 0.821 mIU/mL (0.358-3.740)
[2023-09-28] MEDS ORDERED: MAGNESIUM SULFATE/D5W 100 ML IV SCH (13:15)
[2023-09-28] MEDS ORDERED: MAGNESIUM OXIDE 400 MG TABLET PO ONE (13:15)
[2023-09-28 13:24] LABS: HEMATOCRIT 24.1 % (31.2-41.9); HEMOGLOBIN 7.9 g/dL (10.9-14.3)
[2023-09-28 13:35] VITALS: BP 133/73; TEMP 98.2; O2SAT 96
[2023-09-28] MEDS: MAGNESIUM OXIDE 400 MG TABLET PO SCH ×2 (17:41→17:42)
[2023-09-28 17:44] VITALS: BP 112/61; TEMP 98.3; O2SAT 96
[2023-09-28] MEDS: IV D5 1/2 NS 1000 ML 1,000 ML IV PRN (21:41)
[2023-09-28] MEDS: METOCLOPRAMIDE HCL 10 MG TABLET PO SCH (22:45)
[2023-09-29 01:30] VITALS: BP 137/60; TEMP 98.3; O2SAT 99
[2023-09-29 04:00] VITALS: BP 143/71; TEMP 98
[2023-09-29] MEDS: METOCLOPRAMIDE HCL 10 MG TABLET PO SCH ×2 (06:26→13:55)
[2023-09-29 07:12] LABS: BASOPHILS # (AUTO) 0.1 K/UL (0.0-0.2); BASOPHILS % (AUTO) 0.8 % (0.0-2.0); EOSINOPHILS # (AUTO) 0.3 K/uL (0.0-0.7); EOSINOPHILS % (AUTO) 3.5 % (0.0-7.0); HEMATOCRIT 21.5 % (31.2-41.9); LYMPHOCYTES # (AUTO) 2.1 K/uL (0.8-4.8); LYMPHOCYTES % (AUTO) 27.6 % (20.5-51.5); MEAN CORPUSCULAR HEMOGLOBIN 30.6 uug (24.7-32.8); MEAN CORPUSCULAR HGB CONC 33 g/dL (32.3-35.6); MEAN CORPUSCULAR VOLUME 94.1 fL (75.5-95.3); MONOCYTES # (AUTO) 0.8 K/uL (0.1-1.30); MONOCYTES % (AUTO) 10.1 % (0.0-11.0); NEUTROPHILS # (AUTO) 4.3 K/uL (1.8-8.9); PLATELET COUNT (AUTO) 286 K/uL (179-408); RED CELL DISTRIBUTION WIDTH 14.8 % (12.3-17.7); WHITE BLOOD COUNT (AUTO) 7.5 K/uL (3.8-11.8)
[2023-09-29 07:25] LABS: DIFFERENTIAL COMMENT 1; RED BLOOD CELL COUNT(AUTO) 2.28 MIL/uL (3.63-4.92)
[2023-09-29 07:32] LABS: CALCIUM 7.2 mg/dL (8.5-10.1); CARBON DIOXIDE 26 mmol/L (21-32); CHLORIDE 110 mmol/L (98-107); GLUCOSE 90 mg/dL (74-106); MAGNESIUM 1.3 mg/dL (1.8-2.4); PHOSPHOROUS 3.4 mg/dL (2.5-4.9); POTASSIUM 3.4 mmol/L (3.5-5.1); SODIUM SERUM 143 mmol/L (136-145); UREA NITROGEN, BLOOD 32 mg/dL (7-18)
[2023-09-29] MEDS: APIXABAN 2.5 MG TABLET PO SCH ×2 (09:00→21:06)
[2023-09-29] MEDS: AMLODIPINE 2.5 MG TABLET PO SCH (09:38)
[2023-09-29] MEDS: PROTEIN SUPPLEMENT (PROSTAT) 30 ML LIQUID PO SCH (09:39)
[2023-09-29 09:55] VITALS: BP 152/74; TEMP 98.6; O2SAT 100
[2023-09-29 11:48] LABS: HEMATOCRIT 25.5 % (31.2-41.9); HEMOGLOBIN 8.3 g/dL (10.9-14.3)
[2023-09-29] MEDS: MAGNESIUM SULFATE/D5W 100 ML IV SCH ×4 (12:07→15:36)
[2023-09-29] MEDS ORDERED: POTASSIUM CHLORIDE 50 ML IV SCH (12:30)
[2023-09-29] MEDS: CEFEPIME HCL 1 G in IV DEXTROSE 5% 50 ML IV SCH (13:16)
[2023-09-29] MEDS: SOD FERRIC GLUC COMPLX/SUCROSE 125 MG in IV NORMAL SALINE 100 ML IV SCH (17:19)
[2023-09-29 18:39] VITALS: O2SAT 98
[2023-09-29] MEDS: IV D5 1/2 NS 1000 ML 1,000 ML IV PRN (19:42)
[2023-09-29 20:00] VITALS: BP 147/76; TEMP 98.2; O2SAT 100
[2023-09-29] MEDS: METOCLOPRAMIDE HCL 10 MG/2 ML VIAL IV SCH (21:41)
[2023-09-30] VITALS (10 sets, daily range): BP systolic 130–143; BP diastolic 52–76; TEMP 97.8–98.7; O2SAT 96–100
[2023-09-30] MEDS: CEFEPIME HCL 1 G in IV DEXTROSE 5% 50 ML IV SCH ×2 (00:35→13:59)
[2023-09-30] MEDS: METOCLOPRAMIDE HCL 10 MG/2 ML VIAL IV SCH ×3 (05:17→22:11)
[2023-09-30 07:28] LABS: BASOPHILS % (AUTO) 0.4 % (0.0-2.0); EOSINOPHILS # (AUTO) 0.3 K/uL (0.0-0.7); EOSINOPHILS % (AUTO) 4.4 % (0.0-7.0); LYMPHOCYTES # (AUTO) 1.2 K/uL (0.8-4.8); LYMPHOCYTES % (AUTO) 18.8 % (20.5-51.5); MEAN CORPUSCULAR HEMOGLOBIN 30.9 uug (24.7-32.8); MEAN CORPUSCULAR HGB CONC 33 g/dL (32.3-35.6); MONOCYTES # (AUTO) 0.8 K/uL (0.1-1.30); MONOCYTES % (AUTO) 12.9 % (0.0-11.0); NEUTROPHILS % (AUTO) 63.5 % (38.5-71.5); PLATELET COUNT (AUTO) 270 K/uL (179-408); RED CELL DISTRIBUTION WIDTH 15.1 % (12.3-17.7); WHITE BLOOD COUNT (AUTO) 6.4 K/uL (3.8-11.8)
[2023-09-30 07:46] LABS: DIFFERENTIAL COMMENT 1; RED BLOOD CELL COUNT(AUTO) 2.14 MIL/uL (3.63-4.92)
[2023-09-30 07:52] LABS: CALCIUM 7.2 mg/dL (8.5-10.1); CARBON DIOXIDE 24 mmol/L (21-32); CHLORIDE 108 mmol/L (98-107); GLUCOSE 99 mg/dL (74-106); MAGNESIUM 1.9 mg/dL (1.8-2.4); PHOSPHOROUS 3.7 mg/dL (2.5-4.9); POTASSIUM 3.5 mmol/L (3.5-5.1); SODIUM SERUM 139 mmol/L (136-145); UREA NITROGEN, BLOOD 30 mg/dL (7-18)
[2023-09-30 07:57] LABS: HEMATOCRIT 20.1 % (31.2-41.9); HEMOGLOBIN 6.6 g/dL (10.9-14.3)
[2023-09-30] MEDS: PROTEIN SUPPLEMENT (PROSTAT) 30 ML LIQUID PO SCH (08:00)
[2023-09-30] MEDS: APIXABAN 2.5 MG TABLET PO SCH ×3 (09:00→21:36)
[2023-09-30] MEDS: AMLODIPINE 2.5 MG TABLET PO SCH (09:31)
[2023-09-30] MEDS: SOD FERRIC GLUC COMPLX/SUCROSE 125 MG in IV NORMAL SALINE 100 ML IV SCH (14:29)
[2023-09-30 15:28] LABS: EOSINOPHILS % (MANUAL) 3 % (0-8); NEUTROPHILS % (MANUAL) 67 % (42-75)
[2023-09-30 15:29] LABS: LYMPHOCYTES % (MANUAL) 19 % (20-40); MONOCYTES % (MANUAL) 11 % (2-10)
[2023-09-30 15:30] LABS: PLATELET ESTIMATE ADEQUATE
[2023-09-30] MEDS: IV D5 1/2 NS 1000 ML 1,000 ML IV PRN (16:13)
[2023-09-30] MEDS ORDERED: ACETAMINOPHEN 325 MG TABLET PO ONE (18:18)
[2023-09-30] MEDS ORDERED: diphenhydrAMINE 50 MG/1 ML VIAL IV PRN (18:19)
[2023-10-01] VITALS (8 sets, daily range): BP systolic 120–161; BP diastolic 47–68; TEMP 97.6–99.8; O2SAT 94–99
[2023-10-01] MEDS: CEFEPIME HCL 1 G in IV DEXTROSE 5% 50 ML IV SCH (01:07)
[2023-10-01 04:08] LABS: *IMMUNOGLOBULIN G, SERUM 678 mg/dL (586-1602); FOLATE (FOLIC ACID), SERUM 12.9 ng/mL (>3.0); IMMUNOGLOBULIN A, SERUM 258 mg/dL (64-422); IMMUNOGLOBULIN M, SERUM 93 mg/dL (26-217)
[2023-10-01] MEDS: METOCLOPRAMIDE HCL 10 MG/2 ML VIAL IV SCH ×2 (05:35→14:20)
[2023-10-01 07:11] LABS: BASOPHILS % (AUTO) 0.4 % (0.0-2.0); EOSINOPHILS # (AUTO) 0.3 K/uL (0.0-0.7); EOSINOPHILS % (AUTO) 5.1 % (0.0-7.0); HEMATOCRIT 24.7 % (31.2-41.9); HEMOGLOBIN 8.3 g/dL (10.9-14.3); LYMPHOCYTES # (AUTO) 1.2 K/uL (0.8-4.8); MEAN CORPUSCULAR HEMOGLOBIN 30.4 uug (24.7-32.8); MEAN CORPUSCULAR HGB CONC 34 g/dL (32.3-35.6); MEAN CORPUSCULAR VOLUME 90.9 fL (75.5-95.3); MONOCYTES # (AUTO) 0.9 K/uL (0.1-1.30); MONOCYTES % (AUTO) 15.1 % (0.0-11.0); NEUTROPHILS # (AUTO) 3.6 K/uL (1.8-8.9); NEUTROPHILS % (AUTO) 59.4 % (38.5-71.5); PLATELET COUNT (AUTO) 270 K/uL (179-408); RED BLOOD CELL COUNT(AUTO) 2.72 MIL/uL (3.63-4.92); RED CELL DISTRIBUTION WIDTH 15.6 % (12.3-17.7); WHITE BLOOD COUNT (AUTO) 6.1 K/uL (3.8-11.8)
[2023-10-01 07:25] LABS: ALANINE AMINOTRANSFERASE 29 U/L (14-59); ALKALINE PHOSPHATASE 74 U/L (50-136); ASPARTATE AMINOTRANSFERASE 24 U/L (15-37); BILIRUBIN,TOTAL 0.9 mg/dL (0.2-1.0); CALCIUM 7.5 mg/dL (8.5-10.1); CARBON DIOXIDE 25 mmol/L (21-32); CHLORIDE 103 mmol/L (98-107); CREATININE 1.2 mg/dL (0.6-1.3); GLUCOSE 333 mg/dL (74-106); POTASSIUM 3.8 mmol/L (3.5-5.1); SODIUM SERUM 136 mmol/L (136-145); TOTAL PROTEIN, SERUM 5.1 g/dL (6.4-8.2); UREA NITROGEN, BLOOD 31 mg/dL (7-18)
[2023-10-01 07:40] LABS: DIFFERENTIAL COMMENT 1
[2023-10-01 08:13] LABS: LYMPHOCYTES % (MANUAL) 0 % (20-40); NEUTROPHILS % (MANUAL) 0 % (42-75)
[2023-10-01 09:11] LABS: ALBUMIN 2.5 g/dL (2.9-4.4); ALPHA-1-GLOBULIN 0.3 g/dL (0.0-0.4); ALPHA-2-GLOBULIN 0.8 g/dL (0.4-1.0); BETA GLOBULIN 0.8 g/dL (0.7-1.3); GAMMA GLOBULIN 0.8 g/dL (0.4-1.8); GLOBULIN, TOTAL 2.6 g/dL (2.2-3.9); M-SPIKE Not Observed g/dL (Not Observed)
[2023-10-01] MEDS: PROTEIN SUPPLEMENT (PROSTAT) 30 ML LIQUID PO SCH (11:04)
[2023-10-01 11:06] LABS: FREE KAPPA LT CHAINS SERUM 56.1 mg/L (3.3-19.4); FREE LAMBDA LT CHAIN SERUM 39.1 mg/L (5.7-26.3); KAPPA/LAMBDA RATIO SERUM 1.43 (0.26-1.65)
[2023-10-01] MEDS: ERGOCALCIFEROL 50,000 UNIT CAPSULE PO SCH (11:08)
[2023-10-01] MEDS: APIXABAN 2.5 MG TABLET PO SCH ×2 (11:09→20:01)
[2023-10-01] MEDS: AMLODIPINE 2.5 MG TABLET PO SCH (11:09)
[2023-10-01] MEDS: SOD FERRIC GLUC COMPLX/SUCROSE 125 MG in IV NORMAL SALINE 100 ML IV SCH (14:20)
[2023-10-01 14:41] LABS: HEMOGLOBIN 8.2 g/dL (10.9-14.3)
[2023-10-01] MEDS: METOCLOPRAMIDE HCL 5 MG TABLET PO SCH (16:43)
[2023-10-01] MEDS: IV D5 1/2 NS 1000 ML 1,000 ML IV PRN (16:43)
[2023-10-02] VITALS (7 sets, daily range): BP systolic 118–140; BP diastolic 53–59; TEMP 98.2–100.9; O2SAT 95–98
[2023-10-02] MEDS: CEFEPIME HCL 1 G in IV DEXTROSE 5% 50 ML IV SCH ×2
[2023-10-02] MEDS: ACETAMINOPHEN 650 MG SUPP.RECT RC PRN (00:15)
[2023-10-02] MEDS: DOCUSATE SODIUM 100 MG/10 ML LIQUID UDC GT PRN (09:28)
[2023-10-02] MEDS: METOCLOPRAMIDE HCL 5 MG TABLET PO SCH ×3 (09:28→16:47)
[2023-10-02] MEDS: AMLODIPINE 2.5 MG TABLET PO SCH (09:29)
[2023-10-02] MEDS: APIXABAN 2.5 MG TABLET PO SCH ×2 (09:31→21:18)
[2023-10-02] MEDS: PROTEIN SUPPLEMENT (PROSTAT) 30 ML LIQUID PO SCH (09:32)
[2023-10-02] MEDS: IV D5 1/2 NS 1000 ML 1,000 ML IV PRN (11:31)
[2023-10-02 11:33] LABS: BASOPHILS % (AUTO) 0.5 % (0.0-2.0); EOSINOPHILS # (AUTO) 0.2 K/uL (0.0-0.7); EOSINOPHILS % (AUTO) 2.6 % (0.0-7.0); HEMATOCRIT 23.9 % (31.2-41.9); HEMOGLOBIN 7.9 g/dL (10.9-14.3); LYMPHOCYTES # (AUTO) 1.5 K/uL (0.8-4.8); LYMPHOCYTES % (AUTO) 16.9 % (20.5-51.5); MEAN CORPUSCULAR HEMOGLOBIN 30.1 uug (24.7-32.8); MEAN CORPUSCULAR HGB CONC 33 g/dL (32.3-35.6); MEAN CORPUSCULAR VOLUME 91.7 fL (75.5-95.3); MONOCYTES # (AUTO) 1.5 K/uL (0.1-1.30); MONOCYTES % (AUTO) 16.6 % (0.0-11.0); NEUTROPHILS # (AUTO) 5.7 K/uL (1.8-8.9); NEUTROPHILS % (AUTO) 63.4 % (38.5-71.5); PLATELET COUNT (AUTO) 256 K/uL (179-408); RED BLOOD CELL COUNT(AUTO) 2.61 MIL/uL (3.63-4.92); RED CELL DISTRIBUTION WIDTH 15.1 % (12.3-17.7); WHITE BLOOD COUNT (AUTO) 9.1 K/uL (3.8-11.8)
[2023-10-02 11:47] LABS: DIFFERENTIAL COMMENT 1
[2023-10-02 11:56] LABS: ALANINE AMINOTRANSFERASE 17 U/L (14-59); ALBUMIN 1.6 g/dL (3.4-5.0); ALKALINE PHOSPHATASE 69 U/L (50-136); ASPARTATE AMINOTRANSFERASE 12 U/L (15-37); BILIRUBIN,TOTAL 0.3 mg/dL (0.2-1.0); CALCIUM 6.6 mg/dL (8.5-10.1); CARBON DIOXIDE 20 mmol/L (21-32); CHLORIDE 107 mmol/L (98-107); CREATININE 0.9 mg/dL (0.6-1.3); GLUCOSE 101 mg/dL (74-106); POTASSIUM 2.9 mmol/L (3.5-5.1); SODIUM SERUM 136 mmol/L (136-145); TOTAL PROTEIN, SERUM 4.5 g/dL (6.4-8.2); UREA NITROGEN, BLOOD 26 mg/dL (7-18)
[2023-10-02 12:14] LABS: PHOSPHOROUS 2.7 mg/dL (2.5-4.9)
[2023-10-02] MEDS: SOD FERRIC GLUC COMPLX/SUCROSE 125 MG in IV NORMAL SALINE 100 ML IV SCH (14:05)
[2023-10-02] MEDS: MAGNESIUM SULFATE/D5W 100 ML IV SCH ×2 (16:47→19:44)
[2023-10-02] MEDS: ONDANSETRON 4 MG/2 ML VIAL IV PRN (20:24)
[2023-10-02 21:55] LABS: BAND % (MANUAL) 19 % (0-10); EOSINOPHILS % (MANUAL) 5 % (0-8); LYMPHOCYTES % (MANUAL) 17 % (20-40); METAMYELOCYTES % 2 % (0-1); MONOCYTES % (MANUAL) 15 % (2-10); MYELOCYTES % 1 % (0-0); NEUTROPHILS % (MANUAL) 40 % (42-75); PLATELET ESTIMATE ADEQUATE; REACTIVE LYMPHOCYTES 1 % (0-0)
[2023-10-02 21:56] LABS: ANISOCYTOSIS 1+
[2023-10-03 00:35] VITALS: BP 122/56; TEMP 98.6; O2SAT 97
[2023-10-03] MEDS: CEFEPIME HCL 1 G in IV DEXTROSE 5% 50 ML IV SCH (01:00)
[2023-10-03 02:25] VITALS: O2SAT 98
[2023-10-03 04:10] VITALS: BP 124/53; TEMP 97.5; O2SAT 95
[2023-10-03] MEDS: IV D5 1/2 NS 1000 ML 1,000 ML IV PRN (07:07)
[2023-10-03] MEDS: METOCLOPRAMIDE HCL 5 MG TABLET PO SCH ×3 (09:56→17:02)
[2023-10-03] MEDS: APIXABAN 2.5 MG TABLET PO SCH ×2 (09:57→21:18)
[2023-10-03] MEDS: AMLODIPINE 2.5 MG TABLET PO SCH (09:58)
[2023-10-03] MEDS: PROTEIN SUPPLEMENT (PROSTAT) 30 ML LIQUID PO SCH (09:59)
[2023-10-03 10:24] LABS: BASOPHILS # (AUTO) 0.1 K/UL (0.0-0.2); BASOPHILS % (AUTO) 0.5 % (0.0-2.0); EOSINOPHILS # (AUTO) 0.3 K/uL (0.0-0.7); EOSINOPHILS % (AUTO) 2.6 % (0.0-7.0); HEMATOCRIT 25.9 % (31.2-41.9); HEMOGLOBIN 8.5 g/dL (10.9-14.3); LYMPHOCYTES # (AUTO) 2.8 K/uL (0.8-4.8); MEAN CORPUSCULAR HEMOGLOBIN 30.2 uug (24.7-32.8); MEAN CORPUSCULAR HGB CONC 33 g/dL (32.3-35.6); MEAN CORPUSCULAR VOLUME 91.7 fL (75.5-95.3); MONOCYTES # (AUTO) 1.8 K/uL (0.1-1.30); MONOCYTES % (AUTO) 14.5 % (0.0-11.0); NEUTROPHILS # (AUTO) 7.6 K/uL (1.8-8.9); NEUTROPHILS % (AUTO) 60.4 % (38.5-71.5); PLATELET COUNT (AUTO) 229 K/uL (179-408); RED BLOOD CELL COUNT(AUTO) 2.83 MIL/uL (3.63-4.92); RED CELL DISTRIBUTION WIDTH 15.3 % (12.3-17.7); WHITE BLOOD COUNT (AUTO) 12.6 K/uL (3.8-11.8)
[2023-10-03 10:28] LABS: DIFFERENTIAL COMMENT 1
[2023-10-03 10:38] LABS: ALANINE AMINOTRANSFERASE 28 U/L (14-59); ALBUMIN 1.9 g/dL (3.4-5.0); ALKALINE PHOSPHATASE 85 U/L (50-136); ASPARTATE AMINOTRANSFERASE 20 U/L (15-37); BILIRUBIN,TOTAL 0.4 mg/dL (0.2-1.0); CALCIUM 7.5 mg/dL (8.5-10.1); CARBON DIOXIDE 24 mmol/L (21-32); CHLORIDE 103 mmol/L (98-107); GLUCOSE 107 mg/dL (74-106); POTASSIUM 3.2 mmol/L (3.5-5.1); SODIUM SERUM 135 mmol/L (136-145); TOTAL PROTEIN, SERUM 5.1 g/dL (6.4-8.2); UREA NITROGEN, BLOOD 25 mg/dL (7-18)
[2023-10-03 11:53] VITALS: BP 132/48; TEMP 98; O2SAT 98
[2023-10-03] MEDS: SOD FERRIC GLUC COMPLX/SUCROSE 125 MG in IV NORMAL SALINE 100 ML IV SCH (13:09)
[2023-10-03 16:43] VITALS: BP 155/53; TEMP 98.5; O2SAT 98
[2023-10-03] MEDS ORDERED: POTASSIUM CHLORIDE 20 MEQ POWDER PACKET GT ONE (19:30)
[2023-10-03 20:35] VITALS: BP 130/53; TEMP 98.3; O2SAT 96
[2023-10-03] MEDS ORDERED: POTASSIUM CHLORIDE 20 MEQ POWDER PACKET PO ONE (21:15)
[2023-10-04] VITALS (7 sets, daily range): BP systolic 137–157; BP diastolic 61–66; TEMP 98.1–99.3; O2SAT 95–98
[2023-10-04] MEDS: CEFEPIME HCL 2 G in IV DEXTROSE 5% 100 ML IV SCH (01:00)
[2023-10-04] MEDS: PROTEIN SUPPLEMENT (PROSTAT) 30 ML LIQUID PO SCH (09:02)
[2023-10-04] MEDS: METOCLOPRAMIDE HCL 5 MG TABLET PO SCH ×3 (09:02→17:09)
[2023-10-04] MEDS: AMLODIPINE 2.5 MG TABLET PO SCH (09:03)
[2023-10-04] MEDS: APIXABAN 2.5 MG TABLET PO SCH ×2 (09:25→21:08)
[2023-10-04 09:39] LABS: MAGNESIUM 1.4 mg/dL (1.8-2.4)
[2023-10-04 10:04] LABS: CALCIUM 7.8 mg/dL (8.5-10.1); CARBON DIOXIDE 24 mmol/L (21-32); CHLORIDE 103 mmol/L (98-107); GLUCOSE 111 mg/dL (74-106); POTASSIUM 3.9 mmol/L (3.5-5.1); SODIUM SERUM 133 mmol/L (136-145); UREA NITROGEN, BLOOD 24 mg/dL (7-18)
[2023-10-04 10:25] LABS: BASOPHILS # (AUTO) 0.1 K/UL (0.0-0.2); BASOPHILS % (AUTO) 0.8 % (0.0-2.0); DIFFERENTIAL COMMENT 0; EOSINOPHILS # (AUTO) 0.4 K/uL (0.0-0.7); HEMATOCRIT 26.4 % (31.2-41.9); HEMOGLOBIN 8.5 g/dL (10.9-14.3); LYMPHOCYTES # (AUTO) 3.2 K/uL (0.8-4.8); LYMPHOCYTES % (AUTO) 24.7 % (20.5-51.5); MEAN CORPUSCULAR HEMOGLOBIN 29.8 uug (24.7-32.8); MEAN CORPUSCULAR HGB CONC 32 g/dL (32.3-35.6); MEAN CORPUSCULAR VOLUME 92.3 fL (75.5-95.3); MONOCYTES # (AUTO) 2.2 K/uL (0.1-1.30); MONOCYTES % (AUTO) 17.3 % (0.0-11.0); NEUTROPHILS % (AUTO) 54.2 % (38.5-71.5); PLATELET COUNT (AUTO) 316 K/uL (179-408); RED BLOOD CELL COUNT(AUTO) 2.86 MIL/uL (3.63-4.92); RED CELL DISTRIBUTION WIDTH 15.2 % (12.3-17.7)
[2023-10-04] MEDS: MAGNESIUM SULFATE/D5W 100 ML IV SCH ×2 (11:47→12:44)
[2023-10-04 14:19] LABS: BAND % (MANUAL) 1 % (0-10); EOSINOPHILS % (MANUAL) 3 % (0-8); LYMPHOCYTES % (MANUAL) 18 % (20-40); MONOCYTES % (MANUAL) 13 % (2-10); NEUTROPHILS % (MANUAL) 65 % (42-75); PLATELET ESTIMATE ADEQUATE
[2023-10-04] MEDS: DOCUSATE SODIUM 100 MG/10 ML LIQUID UDC GT PRN (14:32)
[2023-10-04] MEDS: IV D5 1/2 NS 1000 ML 1,000 ML IV PRN (19:00)
[2023-10-04] MEDS: ACETAMINOPHEN 650 MG/20.3 ML LIQUID UDC NG PRN (20:19)
[2023-10-04] MEDS: DOCUSATE SODIUM 100 MG CAPSULE PO SCH (21:00)
[2023-10-05] MEDS: CEFEPIME HCL 2 G in IV DEXTROSE 5% 100 ML IV SCH (00:48)
[2023-10-05 00:54] VITALS: BP 132/51; TEMP 97.8; O2SAT 94
[2023-10-05 05:37] VITALS: BP 135/56; TEMP 98.6; O2SAT 97
[2023-10-05 07:17] LABS: BASOPHILS # (AUTO) 0.1 K/UL (0.0-0.2); BASOPHILS % (AUTO) 0.5 % (0.0-2.0); EOSINOPHILS # (AUTO) 0.2 K/uL (0.0-0.7); EOSINOPHILS % (AUTO) 1.1 % (0.0-7.0); HEMATOCRIT 26.1 % (31.2-41.9); HEMOGLOBIN 8.6 g/dL (10.9-14.3); LYMPHOCYTES # (AUTO) 2.5 K/uL (0.8-4.8); LYMPHOCYTES % (AUTO) 15.2 % (20.5-51.5); MEAN CORPUSCULAR HEMOGLOBIN 30.3 uug (24.7-32.8); MEAN CORPUSCULAR HGB CONC 33 g/dL (32.3-35.6); MEAN CORPUSCULAR VOLUME 91.5 fL (75.5-95.3); MONOCYTES % (AUTO) 18.5 % (0.0-11.0); NEUTROPHILS # (AUTO) 10.5 K/uL (1.8-8.9); NEUTROPHILS % (AUTO) 64.7 % (38.5-71.5); PLATELET COUNT (AUTO) 130 K/uL (179-408); RED BLOOD CELL COUNT(AUTO) 2.85 MIL/uL (3.63-4.92); RED CELL DISTRIBUTION WIDTH 14.8 % (12.3-17.7); WHITE BLOOD COUNT (AUTO) 16.2 K/uL (3.8-11.8)
[2023-10-05 07:23] LABS: DIFFERENTIAL COMMENT 1
[2023-10-05 07:34] LABS: MAGNESIUM 1.5 mg/dL (1.8-2.4); PHOSPHOROUS 2.6 mg/dL (2.5-4.9)
[2023-10-05 07:47] LABS: CALCIUM 7.6 mg/dL (8.5-10.1); POTASSIUM 3.3 mmol/L (3.5-5.1)
[2023-10-05] MEDS ORDERED: IV NORMAL SALINE 250 ML IV ONE (08:48)
[2023-10-05] MEDS ORDERED: IOHEXOL 300MG/ML 100 ML INFUS..BTL ONE (08:48)
[2023-10-05] MEDS ORDERED: SWABABLE VALVE TRANSFER SET EA MC ONE (08:48)
[2023-10-05] MEDS: PROTEIN SUPPLEMENT (PROSTAT) 30 ML LIQUID PO SCH (09:13)
[2023-10-05] MEDS: DOCUSATE SODIUM 100 MG CAPSULE PO SCH ×2 (09:14→22:05)
[2023-10-05] MEDS: ERGOCALCIFEROL 50,000 UNIT CAPSULE PO SCH (09:14)
[2023-10-05] MEDS: METOCLOPRAMIDE HCL 5 MG TABLET PO SCH ×3 (09:14→16:28)
[2023-10-05] MEDS: MIRALAX 17 GM POWD.PACK PO SCH (09:16)
[2023-10-05] MEDS: AMLODIPINE 2.5 MG TABLET PO SCH (09:16)
[2023-10-05] MEDS: APIXABAN 2.5 MG TABLET PO SCH ×2 (09:19→22:05)
[2023-10-05] MEDS: POTASSIUM CHLORIDE 50 ML IV SCH ×2 (10:49→11:58)
[2023-10-05 11:43] VITALS: BP 128/49; TEMP 99; O2SAT 97
[2023-10-05] MEDS: MAGNESIUM SULFATE/D5W 100 ML IV SCH ×2 (11:58→11:59)
[2023-10-05 12:00] VITALS: O2SAT 97
[2023-10-05 14:42] LABS: PLATELET ESTIMATE DECREASED
[2023-10-05 14:46] LABS: BAND % (MANUAL) 2 % (0-10); LYMPHOCYTES % (MANUAL) 16 % (20-40); MONOCYTES % (MANUAL) 20 % (2-10)
[2023-10-05 14:47] LABS: EOSINOPHILS % (MANUAL) 2 % (0-8); NEUTROPHILS % (MANUAL) 60 % (42-75)
[2023-10-05] MEDS: METRONIDAZOLE 500 MG/NS 100ML 500 MG in PREMIXED 1 EACH IV SCH ×2 (15:21→22:06)
[2023-10-05 17:01] VITALS: BP 140/40; TEMP 98.4; O2SAT 97
[2023-10-06 03:20] VITALS: O2SAT 97
[2023-10-06 06:48] LABS: BASOPHILS # (AUTO) 0.1 K/UL (0.0-0.2); BASOPHILS % (AUTO) 0.3 % (0.0-2.0); EOSINOPHILS % (AUTO) 0.2 % (0.0-7.0); HEMATOCRIT 27.7 % (31.2-41.9); HEMOGLOBIN 9.1 g/dL (10.9-14.3); LYMPHOCYTES # (AUTO) 3.2 K/uL (0.8-4.8); LYMPHOCYTES % (AUTO) 10.3 % (20.5-51.5); MEAN CORPUSCULAR HEMOGLOBIN 30.2 uug (24.7-32.8); MEAN CORPUSCULAR HGB CONC 33 g/dL (32.3-35.6); MEAN CORPUSCULAR VOLUME 91.9 fL (75.5-95.3); MONOCYTES # (AUTO) 4.9 K/uL (0.1-1.30); MONOCYTES % (AUTO) 16.1 % (0.0-11.0); NEUTROPHILS # (AUTO) 22.4 K/uL (1.8-8.9); NEUTROPHILS % (AUTO) 73.1 % (38.5-71.5); PLATELET COUNT (AUTO) 300 K/uL (179-408); RED BLOOD CELL COUNT(AUTO) 3.01 MIL/uL (3.63-4.92)
[2023-10-06 06:56] LABS: CALCIUM 7.3 mg/dL (8.5-10.1); CARBON DIOXIDE 19 mmol/L (21-32); CHLORIDE 100 mmol/L (98-107); CREATININE 1.1 mg/dL (0.6-1.3); GLUCOSE 264 mg/dL (74-106); POTASSIUM 3.2 mmol/L (3.5-5.1); SODIUM SERUM 130 mmol/L (136-145); UREA NITROGEN, BLOOD 34 mg/dL (7-18)
[2023-10-06 07:41] LABS: BILIRUBIN,DIRECT 0.2 mg/dL (0.0-0.2); BILIRUBIN,TOTAL 0.4 mg/dL (0.2-1.0); MAGNESIUM 1.7 mg/dL (1.8-2.4); PHOSPHOROUS 2.7 mg/dL (2.5-4.9); TOTAL PROTEIN, SERUM 4.7 g/dL (6.4-8.2)
[2023-10-06 07:55] LABS: DIFFERENTIAL COMMENT 1
[2023-10-06] MEDS: METRONIDAZOLE 500 MG/NS 100ML 500 MG in PREMIXED 1 EACH IV SCH ×3 (08:39→22:00)
[2023-10-06 08:55] LABS: ALBUMIN 1.5 g/dL (3.4-5.0); WHITE BLOOD COUNT (AUTO) 30.6 K/uL (3.8-11.8)
[2023-10-06] MEDS ORDERED: POTASSIUM CHLORIDE 20 MEQ TAB.PRT.SR PO ONE (09:00)
[2023-10-06] MEDS ORDERED: MAGNESIUM SULFATE/D5W 100 ML IV ONE (09:00)
[2023-10-06] MEDS: METOCLOPRAMIDE HCL 5 MG TABLET PO SCH ×3 (09:19→17:10)
[2023-10-06] MEDS: APIXABAN 2.5 MG TABLET PO SCH ×2 (09:20→21:54)
[2023-10-06] MEDS: MIRALAX 17 GM POWD.PACK PO SCH (09:20)
[2023-10-06] MEDS: DOCUSATE SODIUM 100 MG CAPSULE PO SCH ×2 (09:20→21:00)
[2023-10-06] MEDS: AMLODIPINE 2.5 MG TABLET PO SCH (09:21)
[2023-10-06] MEDS: PROTEIN SUPPLEMENT (PROSTAT) 30 ML LIQUID PO SCH (09:22)
[2023-10-06 10:21] VITALS: BP 122/51; TEMP 100.7; O2SAT 98
[2023-10-06 12:00] VITALS: BP 96/56; TEMP 101.5; O2SAT 98
[2023-10-06] MEDS: ACETAMINOPHEN 650 MG/20.3 ML LIQUID UDC NG PRN (12:29)
[2023-10-06 12:44] LABS: PLATELET ESTIMATE ADEQUATE
[2023-10-06 12:51] LABS: BAND % (MANUAL) 4 % (0-10)
[2023-10-06 12:52] LABS: LYMPHOCYTES % (MANUAL) 9 % (20-40); MONOCYTES % (MANUAL) 15 % (2-10); NEUTROPHILS % (MANUAL) 72 % (42-75)
[2023-10-06 16:00] VITALS: BP 101/53; TEMP 100.7; O2SAT 98
[2023-10-06] MEDS: IV D5 1/2 NS 1000 ML 1,000 ML IV PRN (16:06)
[2023-10-06] MEDS: ACETAMINOPHEN 650 MG SUPP.RECT RC PRN (17:25)
[2023-10-06 18:38] VITALS: O2SAT 98
[2023-10-06] MEDS ORDERED: MEROPENEM 500 MG in IV NORMAL SALINE 50 ML IV SCH (20:00)
[2023-10-06] MEDS ORDERED: VANCOMYCIN IV 2,000 MG in IV DEXTROSE 5% 500 ML IV ONE (20:30)
[2023-10-06] MEDS ORDERED: MEROPENEM 500 MG VIAL IV ONE (20:48)
[2023-10-06] MEDS ORDERED: VANCOMYCIN 1000 MG VIAL ONE (20:49)
[2023-10-06] MEDS: ONDANSETRON 4 MG/2 ML VIAL IV PRN (21:59)
[2023-10-06] MEDS ORDERED: LORAZEPAM 2 MG/1 ML VIAL IV ONE (22:45)
[2023-10-07] VITALS: BP 114/59; TEMP 99.8; O2SAT 95
[2023-10-07 04:00] VITALS: BP 94/52; TEMP 97.8; O2SAT 95
[2023-10-07] MEDS: IV D5 1/2 NS 1000 ML 1,000 ML IV PRN (05:45)
[2023-10-07] MEDS: METRONIDAZOLE 500 MG/NS 100ML 500 MG in PREMIXED 1 EACH IV SCH ×2 (05:45→14:03)
[2023-10-07 06:57] LABS: BASOPHILS # (AUTO) 0.3 K/UL (0.0-0.2); BASOPHILS % (AUTO) 0.4 % (0.0-2.0); EOSINOPHILS # (AUTO) 0.3 K/uL (0.0-0.7); EOSINOPHILS % (AUTO) 0.5 % (0.0-7.0); HEMATOCRIT 37.6 % (31.2-41.9); LYMPHOCYTES # (AUTO) 4.6 K/uL (0.8-4.8); LYMPHOCYTES % (AUTO) 6.1 % (20.5-51.5); MEAN CORPUSCULAR HEMOGLOBIN 29.5 uug (24.7-32.8); MEAN CORPUSCULAR HGB CONC 32 g/dL (32.3-35.6); MEAN CORPUSCULAR VOLUME 92.6 fL (75.5-95.3); MONOCYTES # (AUTO) 6.2 K/uL (0.1-1.30); MONOCYTES % (AUTO) 8.2 % (0.0-11.0); NEUTROPHILS # (AUTO) 63.9 K/uL (1.8-8.9); NEUTROPHILS % (AUTO) 84.8 % (38.5-71.5); PLATELET COUNT (AUTO) 394 K/uL (179-408); RED BLOOD CELL COUNT(AUTO) 4.07 MIL/uL (3.63-4.92); RED CELL DISTRIBUTION WIDTH 15.8 % (12.3-17.7)
[2023-10-07 07:14] LABS: CALCIUM 7.5 mg/dL (8.5-10.1); CARBON DIOXIDE 14 mmol/L (21-32); CHLORIDE 99 mmol/L (98-107); GLUCOSE 181 mg/dL (74-106); MAGNESIUM 2.5 mg/dL (1.8-2.4); PHOSPHOROUS 4.5 mg/dL (2.5-4.9); POTASSIUM 4.3 mmol/L (3.5-5.1); SODIUM SERUM 132 mmol/L (136-145); UREA NITROGEN, BLOOD 52 mg/dL (7-18)
[2023-10-07 07:18] LABS: DIFFERENTIAL COMMENT 1; WHITE BLOOD COUNT (AUTO) 75.3 K/uL (3.8-11.8)
[2023-10-07] MEDS ORDERED: MEROPENEM 0.5 G in IV NORMAL SALINE 50 ML IV ONE (09:00)
[2023-10-07] MEDS: DOCUSATE SODIUM 100 MG CAPSULE PO SCH (09:14)
[2023-10-07] MEDS: METOCLOPRAMIDE HCL 5 MG TABLET PO SCH ×3 (09:14→16:44)
[2023-10-07] MEDS: MIRALAX 17 GM POWD.PACK PO SCH (09:14)
[2023-10-07] MEDS: PROTEIN SUPPLEMENT (PROSTAT) 30 ML LIQUID PO SCH (09:15)
[2023-10-07] MEDS: APIXABAN 2.5 MG TABLET PO SCH (09:15)
[2023-10-07] MEDS: AMLODIPINE 2.5 MG TABLET PO SCH (09:27)
[2023-10-07] MEDS ORDERED: MEROPENEM 500 MG in IV NORMAL SALINE 50 ML IV SCH ×2 (11:00→21:00)
[2023-10-07 11:40] LABS: LACTIC ACID 5.6 mmol/L (0.4-2.0)
[2023-10-07 11:53] LABS: NEUTROPHILS % (MANUAL) 71 % (42-75)
[2023-10-07 11:54] LABS: ANISOCYTOSIS 1+; BAND % (MANUAL) 14 % (0-10); BASOPHILS % (MANUAL) 0 % (0-2); EOSINOPHILS % (MANUAL) 0 % (0-8); LYMPHOCYTES % (MANUAL) 9 % (20-40); MONOCYTES % (MANUAL) 6 % (2-10); PLATELET ESTIMATE ADEQUATE
[2023-10-07 12:00] VITALS: BP 86/48; TEMP 98.5; O2SAT 99
[2023-10-07 12:34] LABS: ABG BASE EXCESS -16.1 mmol/L (-2.0-2.0); ABG HCO3 7.6 mmol/L (22.0-26.0); ABG PCO2 15.8 mmHg (35.0-48.0); ABG PH 7.302 (7.340-7.440); ABG PO2 74.9 mmHg (75.0-100.0); ABG SITE RIGHT RADIAL; ABG TOTAL HEMOGLOBIN 13.2 G/dL (12.0-16.0); AaDO2 94.2 mmHg; COHb 0.6 % (0.0-3.9); MetHb 0.2 % (0.0-1.5); O2Hb 93.2 % (94.0-97.0)
[2023-10-07] MEDS ORDERED: SODIUM BICARBONATE 8.4% 50 MEQ/50 ML DISP.SYRIN IV ONE (12:45)
[2023-10-07] MEDS ORDERED: IV D5/ 0.9% NACL 1,000 ML IV PRN (13:00)
[2023-10-07] MEDS ORDERED: SODIUM BICARBONATE 8.4% 100 MEQ in IV D5 1/2 NS 1000 ML 1,000 ML IV SCH (15:30)
[2023-10-07 15:46] VITALS: BP 121/101; TEMP 97.8; O2SAT 96
[2023-10-07 17:21] VITALS: O2SAT 98
[2023-10-07 17:24] LABS: BASOPHILS # (AUTO) 0.3 K/UL (0.0-0.2); BASOPHILS % (AUTO) 0.3 % (0.0-2.0); DIFFERENTIAL COMMENT 0; EOSINOPHILS # (AUTO) 0.4 K/uL (0.0-0.7); EOSINOPHILS % (AUTO) 0.4 % (0.0-7.0); HEMATOCRIT 40.4 % (31.2-41.9); HEMOGLOBIN 12.4 g/dL (10.9-14.3); LYMPHOCYTES % (AUTO) 5.6 % (20.5-51.5); MEAN CORPUSCULAR HEMOGLOBIN 29.3 uug (24.7-32.8); MEAN CORPUSCULAR HGB CONC 31 g/dL (32.3-35.6); MEAN CORPUSCULAR VOLUME 95.5 fL (75.5-95.3); MONOCYTES # (AUTO) 5.6 K/uL (0.1-1.30); MONOCYTES % (AUTO) 5.2 % (0.0-11.0); NEUTROPHILS # (AUTO) 93.8 K/uL (1.8-8.9); NEUTROPHILS % (AUTO) 88.5 % (38.5-71.5); PLATELET COUNT (AUTO) 354 K/uL (179-408); RED BLOOD CELL COUNT(AUTO) 4.22 MIL/uL (3.63-4.92); RED CELL DISTRIBUTION WIDTH 16.1 % (12.3-17.7)
[2023-10-07 17:29] LABS: WHITE BLOOD COUNT (AUTO) 106.1 K/uL (3.8-11.8)
[2023-10-07 17:56] LABS: BASOPHILS % (MANUAL) 0 % (0-2); EOSINOPHILS % (MANUAL) 1 % (0-8); LYMPHOCYTES % (MANUAL) 8 % (20-40); MONOCYTES % (MANUAL) 6 % (2-10)
[2023-10-07 17:57] LABS: BAND % (MANUAL) 12 % (0-10); METAMYELOCYTES % 4 % (0-1)
[2023-10-07 17:58] LABS: BLASTS, MANUAL % 0 % (0-0); MYELOCYTES % 0 % (0-0); NEUTROPHILS % (MANUAL) 69 % (42-75); PROMYELOCYTES % 0 %
[2023-10-07] MEDS ORDERED: HYDROXYUREA 500 MG CAPSULE PO SCH (19:57)
[2023-10-07] MEDS ORDERED: ALLOPURINOL 100 MG TABLET PO SCH (20:00)
== END 2023-10-08 01:45 | DRG 710 ==
LOC: ER 11:30 → ICU 21:36 → CCU 21:40 → TELE3 09-27 15:50 → TELE-TD3 10-07 12:54
PROVIDERS: ADMIT Nurse Practitioner Acute Care; ATTEND Nurse Practitioner Acute Care
PROC: 5A1955Z Respiratory Ventilation, Greater than 96 Consecutive Hours (ICD-10-PCS; principal; 2023-09-03)
PROC: 0BH17EZ Insertion of Endotracheal Airway into Trachea, Via Natural or Artificial Opening (ICD-10-PCS; principal; 2023-09-03)
PROC: 02HV33Z Insertion of Infusion Device into Superior Vena Cava, Percutaneous Approach (ICD-10-PCS; principal; 2023-09-03)
PROC: 5A1223Z Performance of Cardiac Pacing, Continuous (ICD-10-PCS; principal; 2023-09-03)
PROC: 02HK3JZ Insertion of Pacemaker Lead into Right Ventricle, Percutaneous Approach (ICD-10-PCS; 2023-09-04)
PROC: 0JH606Z Insertion of Pacemaker, Dual Chamber into Chest Subcutaneous Tissue and Fascia, Open Approach (ICD-10-PCS; 2023-09-04)
PROC: 02H63JZ Insertion of Pacemaker Lead into Right Atrium, Percutaneous Approach (ICD-10-PCS; 2023-09-04)
PROC: 02HV33Z Insertion of Infusion Device into Superior Vena Cava, Percutaneous Approach (ICD-10-PCS; 2023-09-06)
PROC: 02HV33Z Insertion of Infusion Device into Superior Vena Cava, Percutaneous Approach (ICD-10-PCS; 2023-09-15)
PROC: B548ZZA Ultrasonography of Superior Vena Cava, Guidance (ICD-10-PCS; 2023-09-15)
PROC: 5A1D70Z Performance of Urinary Filtration, Intermittent, Less than 6 Hours Per Day (ICD-10-PCS; 2023-09-16)
PROC: 30233N1 Transfusion of Nonautologous Red Blood Cells into Peripheral Vein, Percutaneous Approach (ICD-10-PCS; 2023-09-30)
DX: A41.9 Sepsis, unspecified organism (principal); J96.01 Acute respiratory failure with hypoxia; N17.0 Acute kidney failure with tubular necrosis; R65.21 Severe sepsis with septic shock; J69.0 Pneumonitis due to inhalation of food and vomit; G92.8 Other toxic encephalopathy; G93.41 Metabolic encephalopathy; E43 Unspecified severe protein-calorie malnutrition; K55.9 Vascular disorder of intestine, unspecified; Z66 Do not resuscitate; K56.7 Ileus, unspecified; I21.A1 Myocardial infarction type 2; J15.9 Unspecified bacterial pneumonia; I49.5 Sick sinus syndrome; D63.8 Anemia in other chronic diseases classified elsewhere; E87.5 Hyperkalemia; N39.0 Urinary tract infection, site not specified; I48.0 Paroxysmal atrial fibrillation; Z85.038 Personal history of other malignant neoplasm of large intestine; Z68.42 Body mass index [BMI] 45.0-49.9, adult; E66.01 Morbid (severe) obesity due to excess calories; J44.0 Chronic obstructive pulmonary disease with (acute) lower respiratory infection; K44.9 Diaphragmatic hernia without obstruction or gangrene; K62.89 Other specified diseases of anus and rectum; B96.5 Pseudomonas (aeruginosa) (mallei) (pseudomallei) as the cause of diseases classified elsewhere; K82.8 Other specified diseases of gallbladder; M19.90 Unspecified osteoarthritis, unspecified site; E88.09 Other disorders of plasma-protein metabolism, not elsewhere classified; E87.6 Hypokalemia; K52.9 Noninfective gastroenteritis and colitis, unspecified; E78.5 Hyperlipidemia, unspecified; D68.59 Other primary thrombophilia; R13.10 Dysphagia, unspecified; I13.0 Hypertensive heart and chronic kidney disease with heart failure and stage 1 through stage 4 chronic kidney disease, or unspecified chronic kidney disease; N18.9 Chronic kidney disease, unspecified; I50.30 Unspecified diastolic (congestive) heart failure; M89.8X9 Other specified disorders of bone, unspecified site; E83.42 Hypomagnesemia; E87.20 Acidosis, unspecified; D72.821 Monocytosis (symptomatic); Z79.899 Other long term (current) drug therapy; Z79.01 Long term (current) use of anticoagulants; R18.8 Other ascites; R53.1 Weakness; Z79.1 Long term (current) use of non-steroidal anti-inflammatories (NSAID); Z98.890 Other specified postprocedural states; M54.2 Cervicalgia
CPT/HCPCS: 36415; 36600; 70030-TC; 70450; 71045; 71250; 71260; 74018; 76705; 82378; 82746; 82784; 82803; 83550; 83605; 83615; 83690; 83735; 84100; 84132; 84155; 84165; 84443; 84478; 84484; 85018; 85025; 85730; 86334; 86704; 86705; 86706; 86803; 86850; 86900; 86901; 86920; 87040; 87070; 87340; 88185; 90937; 93307; 94002; 94003; 94640; 94664; 94760; 99082-TC; A4606; A4649; A4663; C1785; G0378; J0171; J0330; J0461; J0692; J1200; J1610; J1650; J1940; J2060; J2185; J2250; J2405; J2765; J2916; J3010; J3370; J3475; J3480; J3490; J3590; J7040; J7042; J7050; J7060; J8597; P9016; P9047; Q9967